=== PATIENT | female | born 1965 | race Caucasian/White ===

== ENCOUNTER 2024-08-18 16:47 | Emergency (ER) | payer MEDICAID, SELFPAY ==
[2024-08-18 17:02] VITALS: BP 119/91; PULSE 99; RESP 20; TEMP 36.8; O2SAT 95; BMI 28.0
--- NOTE | 2024-08-18 17:03 | ED_ITS ---
HPI - General Adult General Date Seen: 08/18/24 Chief complaint: Headache/Migraine Stated complaint: 10-day migraine Time Seen by Provider: 08/18/24 17:03 History of Present Illness HPI narrative: 58-year-old female with history of asthma, migraine headaches, colon polyps, history of COVID, previous hysterectomy. She presents to the ER today, accompanied by her , with concern for headache that is been ongoing for 10 days. She also has cough, nasal congestion, sore throat, and URI symptoms In terms of her headache she endorses that she has a longstanding history of migraines. She has had them off and on for years. She recalls that when she had a bad migraine some years ago she was evaluated in the ER at [facility]. Apparently at 1 point she had a lumbar puncture to look for meningitis (LP was normal). He apparently she had some complications after the lumbar puncture so she says she will never do that again. She has no known history of vascular disease, aneurysm. No history of immuno deficiency. She typically manages her migraine headaches with Imitrex. She has been trying to trach Imitrex for this headache but it is just not very effective. She has also been trying Tylenol, NyQuil, and qkzg-hms-pzjorio medications without much relief. Her current headache started about 10 days ago on August 08. She says typically with migraine headaches she wakes up in the morning with them but this headache started in the evening. She recalls that it was on [facility] Friday. The headache was not specifically abrupt in onset or associated with any head trauma or exertion or other activity. It has been persistent ever since then. It does get better with Imitrex but never completely goes away. The headache is primarily on the right side of her head which is the typical spot for her migraines but is more focused and intense on her right pentecostal which is different than her normal migraine headache. It does not affect her vision. The headache does make her light sensitive. She is also nauseous but not vomiting. No confusion. No facial droop. No slurred speech. No difficulty walking. No focal numbness or weakness. No fever. The headache does radiate down into the right occipital part of her neck at the base of the skull but otherwise no neck stiffness. Incidentally, 2 days ago on Friday she developed URI symptoms. These include nasal congestion, mild sore throat, cough. She is not short of breath. She is not having any chest pain. No production of sputum. She is mildly nauseous but not vomiting. No abdominal pain. No diarrhea. No rash. She works as a high school chemistry teacher so has potential to exposure to all of the common respiratory pathogens, but has no specific known exposure. She has a history of asthma and controls her asthma with prescription inhalers. Related Data Home Medications ?Medication ?Instructions ?Recorded ?Confirmed budesonide-formoterol inhalation PRN 08/18/24 fluticasone propionate 230 2 inh inhalation BID 08/18/24 08/18/24 mcg-salmeterol 21 mcg/actuation HFA inhaler (Advair HFA) loratadine 10 mg tablet 10 mg PO DAILY 08/18/24 08/18/24 (Allerclear) sumatriptan succinate 25 mg tablet 25 mg PO Q2-4H PRN 08/18/24 08/18/24 (Imitrex) Previous Rx's ?Medication ?Instructions ?Recorded prednisone 20 mg tablet 40 mg (2 x 20 mg) PO DAILY #10 tabs 08/18/24 Allergies Allergy/AdvReac Type Severity Reaction Status Date / Time cat dander Allergy Verified 08/18/24 18:22 house dust Allergy Verified 08/18/24 18:22 mold Allergy Verified 08/18/24 18:22 Exam Narrative: Exam Narrative: Primary Survey: A- patent. Speaking clearly. Phonation normal. No stridor. B- breathing easily. Lung sounds clear and equal. Oxygen saturation normal on room air C- no active bleeding. Blood pressure stable. Symmetric pulses and cap refill in 4 extremities. D- alert and oriented x3. GCS 15. No focal deficits. Constitutional: Appears well-developed and well-nourished. Alert. Conversant. Non toxic. HENT: Head: Atraumatic. No depressed skull fracture, Raccoon Eyes, Calderon's sign, or hemotympanum. Face normal. TMs normal Nose: Nose normal. Mouth/Throat: Oral mucosa is clear and moist. no trismus. Pharynx minimally erythematous. Tonsils symmetric. No tonsillar enlargement or exudate. Eyes: Conjunctivae normal. EOM normal. Pupils equal, round, and reactive to light. No scleral icterus. Neck: Normal range of motion. Neck supple. No tracheal deviation present. Cardiovascular: Normal rate, regular rhythm. No gallop. No friction rub. No murmur heard. Symmetric radial artery pulses Pulmonary/Chest: Effort normal. No stridor. No respiratory distress. No wheezes. Questionable right> left basilar rales, but these seem to clear after coughing spell.. No rhonchi . No tenderness. Abdominal: Soft. No distension. No mass. No tenderness. No rebound. No guarding. No HSM. No CVA tenderness Musculoskeletal: RUE: Normal range of motion. No tenderness. No deformity LUE: Normal range of motion. No tenderness. No deformity RLE: Normal range of motion. No edema. No tenderness. No deformity LLE: Normal range of motion. No edema. No tenderness. No deformity Neurological: Mental status normal. Attention normal. Alert and oriented x3. GCS 15. Memory normal. Speech fluent. Cognition normal. Cranial Nerves intact II-XII except I did not formally test gag or visual acuity. EOMI. Palate elevates symmetrically and tongue protrudes in the midline. Strength: 5/5 trapezius on the right and left 5/5 deltoid on the right and left 5/5 biceps on the right and left 5/5 triceps on the right and left 5/5 network manager on the right and left 5/5 thumb opposition on the right and le ft 5/5 finger abduction on the right and le ft 5/5 hip flexors (L3) on the right and le ft 5/5 quadriceps (L4) on the right and lef t 5/5 tibialis anterior on the right and l eft 5/5 EHL (L5) on the right and left 5/5 gastrocnemius (S1) on the right and left 5/5 hamstring on the right and left Sensation intact to light touch in both upper extremities (C4-T1) Sensation intact to light touch in Both lower extremities (L4-S1). Finger to nose and coordination normal. Skin: Skin is warm and dry. No rash noted. No pallor. Normal capillary refill. Psychiatric: Normal mood. Normal affect. Very polite but somewhat tangential with her history. She recalls that with previous bad headaches years ago she apparently had a lumbar puncture done at [facility]. She says she will never do that again because she was complicated by some sort of pain radiating down her legs after the procedure. She says apparently the provider ?a bubble? after the LP. Const: Vital Signs, click to edit/add: Vital Signs - 24 hr 08/18/24 17:02 Temperature 98.3 F Pulse Rate [Pulse Oximeter] 99 Respiratory Rate 20 Blood Pressure [Ri ght Upper Arm] 119/91 H Pulse Oximetry 95 Oxygen Delivery Me thod Room Air Course Course ED Course: Recheck-headache improved from 9 down to a 7/10. She does report that she had a temporary jittery spell with restless legs after receiving Reglan but that is now getting better Recheck-Headache not improving below 7. Additional meds for muscle relaxation with neck spasm (diazepam) and for headache (Zyprexa) ordered Reevaluation(s) Reevaluation #1: Recheck-headache improved down to a 5.5. Still having some neck muscle spasm in the posterior neck. She does have normal range of motion. No stiffness or meningismus Reevaluation #2: Recheck-after droperidol headache improving. Almost gone. Still some soreness in her neck and pentecostal but she says not really ?pain? anymore Vital Signs Vital signs: Initial Vital Signs Temperature 98.3 F 08/18/24 17:02 Temperature Source Temporal Artery Scan 08/18/24 17:02 Pulse Rate 99 08/18/24 17:02 Respiratory Rate 20 08/18/24 17:02 Blood Pressure 119/91 H 08/18/24 17:02 Blood Pressure Mean 100 08/18/24 17:02 Blood Pressure Position Sitting 08/18/24 17:02 Pulse Oximetry 95 08/18/24 17:02 Oxygen Delivery Method Room Air 08/18/24 17:02 Vital Signs Temperature 98.3 F 08/18/24 17:02 Pulse Rate 99 08/18/24 17:02 Respiratory Rate 20 08/18/24 17:02 Blood Pressure 119/91 H 08/18/24 17:02 Pulse Oximetry 95 08/18/24 17:02 Oxygen Delivery Method Room Air 08/18/24 17:02 Temperature 98.3 F 08/18/24 17:02 Pulse Rate 99 08/18/24 17:02 Respiratory Rate 20 08/18/24 17:02 Blood Pressure 119/91 H 08/18/24 17:02 Pulse Oximetry 95 08/18/24 17:02 Oxygen Delivery Method Room Air 08/18/24 17:02 Medications Administered Medications: Generic Name Dose Route Start Last Admin Trade Name Wendi PRN Reason Stop Dose Admin Droperidol 2.5 mg 08/18/24 20:13 08/18/24 20:23 Droperidol 2.5 Mg/Ml Inj IV 08/18/24 20:14 2.5 mg ONCE ONE Administration Discontinued Medications Generic Name Dose Route Start Last Admin Trade Name Wendi PRN Reason Stop Dose Admin Dexamethasone 10 mg 08/18/24 17:41 08/18/24 18:18 Dexamethasone 10 Mg/Ml Inj PO 08/18/24 17:42 10 mg ONCE ONE Administration Diazepam 5 mg 08/18/24 19:12 08/18/24 19:26 Diazepam 5 Mg/Ml Inj IV 08/18/24 19:13 5 mg ONCE ONE Administration Diphenhydramine HCl 12.5 mg 08/18/24 17:41 08/18/24 18:21 Diphenhydramine 50 Mg/Ml Inj IVP 08/18/24 17:42 12.5 mg ONCE ONE Administration Sodium Chloride 1,000 mls @ 1,000 mls/hr 08/18/24 17:45 08/18/24 19:11 0.9 % Sodium Chloride 1000 Ml IV 08/18/24 18:44 Infused .Q1H MAMTA Infusion Ketorolac Tromethamine 15 mg 08/18/24 17:45 08/18/24 18:21 Ketorolac 15 Mg/Ml Inj IVP 08/18/24 17:46 15 mg ONCE ONE Administration Metoclopramide HCl 10 mg 08/18/24 17:41 08/18/24 18:21 Metoclopramide Hcl 5 Mg/Ml Inj IVP 08/18/24 17:42 10 mg ONCE ONE Administration Olanzapine 5 mg 08/18/24 19:12 08/18/24 19:26 Olanzapine 5 Mg/Ml Inj IVP 08/18/24 19:13 5 mg ONCE ONE Administration Medical Decision Making MDM Narrative Medical decision making narrative: 58-year-old female with history of migraine headaches presenting to the ER today with a fairly significant headache ongoing for about 10 days. Along with that it has been associated with upper respiratory his symptoms including stuffy nose, sore throat, cough for the past 3 days. In terms of the headache, she has no recent head trauma. She is not anticoagulated. The headache however is much more persistent than any of her previous migraines, prompting workup for other conditions. Head CT is obtained and is fortunately negative for any sign of intracranial hemorrhage, subarachnoid. With regard to subarachnoid, sensitivity of the noncontrast head CT would be low at this point since for 10 days out from onset of the headache. CT angio of her head neck is obtained is negative for any aneurysmal disease. Also negative for any sign of cervical artery dissection or carotid stenosis. Overall I have low clinical suspicion for subarachnoid since the headache was not abrupt in onset or thunderclap in nature. Discussed potential lumbar puncture with the patient. She adamantly is refusing. At this point I have low suspicion for meningitis and she is not febrile, white count is normal, she has no neck stiffness. There is no positional component to her headache to suggest pseudotumor cerebri so would hold off on LP for opening pressure at this time. Laboratory workup looks reassuring. Carboxyhemoglobin level is low. White count normal. She also has stuffy nose, sore throat, cough consistent with an upper respiratory tract infection. Viral testing positive for RSV. There is no signs at this point of serious bacterial infection such as OM, RPA, epiglottitis, HAND BLOCKER, strep pharyngitis, pneumonia, sinusitis, meningitis, bacteremia, serious bacterial infection. G chest x-ray is normal by my read but there is suggestion of atelectasis versus subtle infiltrate in the right base per Radiology. I suspect this is probably atelectasis, or possibly a viral pneumonia from RSV. Would hold off on antibiotics for now she does have a history of asthma but is not wheezing here in the ER today. With the potential for this RSV triggering an asthma exacerbation, will start the patient on a short course of prednisone. Discussed with the patient and her the prednisone likely will not alter the course of RSV infection but hopefully will help prevent at an asthma exacerbation. There are no significant gastrointestinal symptoms at this point and no signs of dehydration. Close followup with primary care physician is indicated. Return to ED for worsening headache, uncontrolled vomiting, worsening trouble breathing, fever > 103, protracted vomiting, confusion, or other worsening. Lab Data Labs: Lab Results 08/18/24 08/18/24 08/18/24 Range/Units 17:55 17:55 18:20 WBC 5.27 (4.50-11.00) K/uL RBC 4.73 (4.00-5.20) m/uL Hgb 13.9 (12.0-16.0) gm/dL Hct 42.5 (33.0-51.0) % MCV 90 (80-100) fL MCH 29 (26-34) pg MCHC 33 (32-36) gm/dL RDW Coeff of Jaswant 12.7 (11.5-15.5) % Plt Count 299 (140-440) K/uL Neut % (Auto) 60.0 (42.0-72.0) % Lymph % (Auto) 23.5 (20-44) % Isabella % (Auto) 9.9 (0.0-11.0) % Eos % (Auto) 5.7 (0.0-7.0) % Baso % (Auto) 0.9 (0.0-3.0) % Neut # (Auto) 3.16 (1.7-7.0) K/uL Lymph # (Auto) 1.24 (0.90-2.90) K/uL Isabella # (Auto) 0.50 (0.00-0.90) K/UL Eos # (Auto) 0.30 (0.00-0.50) K/uL Baso # (Auto) 0.05 (0.00-0.30) K/uL Abs Immat Gran (auto) 0.00 (0.00-0.30) K/uL Imm/Tot Granulo (auto) 0.0 % Carboxyhemoglobin 1.3 (0.0-5.0) % Sodium 137 (135-149) mmol/L Potassium 4.1 (3.6-5.1) mmol/L Chloride 104 (96-114) mmol/L Carbon Dioxide 24 (20-32) mmol/L Anion Gap 9 (7-15) mEq/L BUN 16 (7-30) mg/dL Creatinine 0.8 (0.5-1.5) mg/dL Estimated Creat Clear 70.66 Estimated GFR 86 ml/min Glucose 108 (60-115) mg/dL Lactate 0.9 (0.5-1.9) mmol/L Calcium 9.2 (8.4-10.6) mg/dL Procalcitonin Cancelled 0.08 SARS-CoV-2 (PCR) Negative SARS-CoV-2 (Negative) Influenza Type A (PCR) Negative PCR FLU A (Negative) Influenza Type B (PCR) Negative PCR FLU B (Negative) RSV (PCR) POSITIVE PCR RSV A (Negative) Imaging Data CT scan - head: Attestation: I have reviewed the pertinent imaging results. My impression: Normal Radiologist's impression: IMPRESSION: No acute intracranial hemorrhage or mass effect. CTA neck: Attestation: I have reviewed the pertinent imaging results. Radiologist's impression: Preliminary Report: No proximal large vessel occlusion, cervical arterial stenosis, or arterial dissection. CTA head: Attestation: I have reviewed the pertinent imaging results. Radiologist's impression: Preliminary Report: No proximal large vessel occlusion, cervical arterial stenosis, or arterial dissection. Chest x-ray: Attestation: I have reviewed the pertinent imaging results. My impression: No acute infiltrate Radiologist's impression: IMPRESSION: 1. Suggestion of a right-sided aortic arch. 2. Streaky right basilar opacities, may reflect atelectasis versus early pneumonia. Discharge Plan Discharge Clinical Impression: Headache, Respiratory syncytial virus (RSV) Patient Disposition: Home, Self-Care Condition: Stable Instructions: Acute Headache (DC), RSV (Respiratory Syncytial Virus) Infection (ED) Additional Instructions: As we discussed, please come back to the ER right away if you have any problems, especially if you have worsening or uncontrolled headache, high fever, confusion, uncontrolled vomiting, or worsening trouble breathing. You can usual regular medications as well as [id number] medications such as Tylenol or ibuprofen if needed to help treat your headache You do have respiratory syncytial virus. This is of viral respiratory infection that has spread in the air when people cough. He should stay home until your symptoms are improving and and until you have been afebrile for 24 hours. Please follow-up with your regular doctor or come back to the ER within 3-5 days if you are not substantially improving Prescriptions: New prednisone 20 mg tablet 40 mg PO DAILY Qty: 10 0RF No Action fluticasone propion-salmeterol [Advair HFA] 230-21 mcg/actuation HFA aerosol inhaler 2 inh inhalation BID budesonide-formoterol [Symbicort] inhalation PRN loratadine [Allerclear] 10 mg tablet 10 mg PO DAILY sumatriptan succinate [Imitrex] 25 mg tablet 25 mg PO Q2-4H PRN Rx Instructions: do not exceed 8 doses per 24 hrs Follow Up/Referrals: Provider,Not a Local [Primary Care Provider] - Stand Alone Forms: [employer] Info Instructions
--- NOTE | 2024-08-18 17:41 | CRLHL7_ITS ---
For Patients: As a result of the Century Cures Act, medical imaging exams and procedure reports are released immediately into your electronic medical record. You may view this report before your referring provider. If you have questions, please contact your health care provider. INDICATION: Right basilar rales. TECHNIQUE: Chest 2 view(s) COMPARISON: None. FINDINGS: No cardiomegaly. Suggestion of a right-sided aortic arch. Pulmonary vasculature is normal. Streaky right basilar opacities. No layering pleural effusion. No pneumothorax. Multilevel degenerative changes of the visualized spine. IMPRESSION: 1. Suggestion of a right-sided aortic arch. 2. Streaky right basilar opacities, may reflect atelectasis versus early pneumonia. Dictated by Rickie Huddleston MD @ 08/18/2024 7:05:31 PM (Electronically Signed)
--- NOTE | 2024-08-18 17:42 | CRLHL7_ITS ---
For Patients: As a result of the Century Cures Act, medical imaging exams and procedure reports are released immediately into your electronic medical record. You may view this report before your referring provider. If you have questions, please contact your health care provider. Indication Headache. TECHNIQUE: Noncontrast CT images of the brain. COMPARISON: None. FINDINGS: The ventricles and sulci are within normal limits for patient age. No mass effect or midline shift. Sim-white differentiation is maintained. No acute intracranial hemorrhage or pathologic extra-axial fluid collection. Globes are symmetric. The calvarium is intact. Mfxc-yj-rbxxgqyu paranasal sinus mucosal thickening. Mastoid air cells are clear. IMPRESSION: No acute intracranial hemorrhage or mass effect. Please note that all CT scans at this facility use dose modulation, iterative reconstruction, and/or weight-based dosing when appropriate to reduce radiation dose to as low as reasonably achievable. Dictated by Lex Boss MD @ 08/18/2024 6:41:25 PM (Electronically Signed)
--- NOTE | 2024-08-18 17:42 | CRLHL7_ITS ---
For Patients: As a result of the Century Cures Act, medical imaging exams and procedure reports are released immediately into your electronic medical record. You may view this report before your referring provider. If you have questions, please contact your health care provider. DATE: 08/18/2024 CLINICAL HISTORY: Patient with headache and neck pain. TECHNIQUE: Standard helical CT image acquisition of the neck up to the skull base after bolus intravenous contrast enhancement. 2D and 3D MIP images for post-processing were performed and interpreted on an independent workstation and 3D images were permanently archived. COMPARISON: CT same day. FINDINGS: There is a right-sided aortic arch. The origins of the great vessels from the aortic arch are patent. The origin of the right vertebral artery is patent. The origin of the left vertebral artery is patent. The common carotid arteries are patent. There is no stenosis at the origin of the right internal carotid artery. There is no stenosis at the origin of the left internal carotid artery. The rest of the cervical segments of the internal carotid arteries are patent up to the skull base. The left vertebral artery is dominant. The cervical segments of the vertebral arteries are patent up to the skull base. The visualized lung apices are unremarkable. The thyroid gland is unremarkable. The soft tissues of the neck are unremarkable. There are degenerative changes in the cervical spine. IMPRESSION: Patent cervical vasculature. Please note that all CT scans at this facility use dose modulation, iterative reconstruction, and/or weight-based dosing when appropriate to reduce radiation dose to as low as reasonably achievable. Dictated by Danna Bustos MD @ 08/19/2024 10:25:09 AM (Electronically Signed)
--- NOTE | 2024-08-18 17:42 | CRLHL7_ITS ---
For Patients: As a result of the Century Cures Act, medical imaging exams and procedure reports are released immediately into your electronic medical record. You may view this report before your referring provider. If you have questions, please contact your health care provider. DATE: 08/18/2024 CLINICAL HISTORY: Patient with headache. TECHNIQUE: Standard helical CT image acquisition through the intracranial circulation following intravenous administration of contrast material with bolus tracking. 2D and 3D MIP images for post-processing were performed and interpreted on an independent workstation and 3D images were permanently archived. COMPARISON: CT same day. FINDINGS: There is no cerebral aneurysm or large vessel occlusion. The right internal carotid artery is normal. The right middle cerebral artery and its branches are normal. The right anterior cerebral artery and its branches are normal. The left internal carotid artery is normal. The left middle cerebral artery and its branches are normal. The left anterior cerebral artery and its branches are normal. The anterior communicating artery is well visualized and appears normal. The right vertebral artery and PICA are normal. The left vertebral artery and PICA are normal. The left vertebral artery is dominant. The basilar artery is patent and appears normal. The right posterior cerebral artery is normal. The left posterior cerebral artery is normal. IMPRESSION: Patent proximal intracranial vasculature without intracranial aneurysms. Please note that all CT scans at this facility use dose modulation, iterative reconstruction, and/or weight-based dosing when appropriate to reduce radiation dose to as low as reasonably achievable. Dictated by Danna Bustos MD @ 08/19/2024 10:26:36 AM (Electronically Signed)
--- OUTSIDE RECORDS SUMMARY | 2024-08-18 18:08 | XMS_ITS | Encounter Summary ---
Author Organization [facility] Address [address] [place] [id number] Care Team Providers Care Certified Fraud Examiner Name Role Phone Dianne Syed MD Unavailable [phone] Angeles Hartley MD Unavailable [phone] Carlotta Miranda NP Unavailable [phone] No Ref-Primary, Physician Primary Care Provider Encounter Details Date Type Department Care Team (Late st Contact Info) Description 05/06/2024 [facility] Medical Advice [facility] [address] [id number] Amina Ziegler RN Social History Tobacco Use Types Packs/Day Years Used Date Smoking Tobacco: Never Smokeless Tobacco: Never Alcohol Use Standard Drinks/Week Comments Yes 0 (1 standard drink = 0.6 oz pure alcohol) Alcoholic Drinks/day: white wine once in a great while PHQ-2 Answer Date Recorded PHQ-2 Score 0 04/25/2020 Adolescent Education Answer Date Record ed Getting School Help Needed Not on file 03/31 Comments No Sex and Gender Information Value Date Recorded Sex Assigned at Female 07/26/2021 8:26 AM LITHOGRAPHIC ETCHER Legal Sex Female 4:53 AM LITHOGRAPHIC ETCHER Gender Identity Female 07/26/2021 8:26 AM LITHOGRAPHIC ETCHER Sexual Orientation Straight 07/26/2021 8: 26 AM LITHOGRAPHIC ETCHER documented as of this encounter Plan of Treatment Not on file documented as of this encounter Visit Diagnoses Not on filedocumented in this encounter Care Teams Certified Fraud Examiner Relationship Specialty Start Date End Date No Ref-Primary, Physician PCP - General 01/05/24 Dianne Syed MD Assigned Allergy Provider 01/12/21 Angeles Hartley MD [address] [place] [id number] Surgery 06/27/22 Carlotta Miranda NP [address] [place] [address] [place] [id number] Assigned PCP 04/26/23 documented as of this encounter
--- OUTSIDE RECORDS SUMMARY | 2024-08-18 18:08 | XMS_ITS | Encounter Summary ---
Author Organization [place] Address [address] [place] [address] Care Team Providers Care Director Of Player Personnel Name Role Phone Carlotta Miranda NP Primary Care Provider [phone] Dianne Syed MD Unavailable [phone] Carlotta Miranda NP Unavailable [phone] Angeles Hartley MD Unavailable [phone] Carlotta Miranda NP Unavailable [phone] Carlotta Miranda NP Unavailable [phone] Eduardo Hong CNP Unavailable Carlotta Miranda NP Unavailable No Ref-Primary, Physician Primary Care Provider Encounter Details Date Type Department Care Team (Late st Contact Info) Description [facility] Fatou[facility]ata Magana [facility] [address] [facility] [place] [id number] Social History Tobacco Use Types Packs/Day Years Used Date Smoking Tobacco: Never Smokeless Tobacco: Never Alcohol Use Standard Drinks/Week Comments Yes 0 (1 standard drink = 0.6 oz pure alcohol) Alcoholic Drinks/day: white wine once in a great while PHQ-2 Answer Date Recorded PHQ-2 Score 0 04/25/2020 Comments No Sex and Gender Information Value Date Recorded Sex Assigned at Female 07/26/2021 8:26 AM VESSEL SCRAPPER Legal Sex Female 4:53 AM VESSEL SCRAPPER Gender Identity Female 07/26/2021 8:26 AM VESSEL SCRAPPER Sexual Orientation Straight 07/26/2021 8: 26 AM VESSEL SCRAPPER documented as of this encounter Plan of Treatment Not on file documented as of this encounter Visit Diagnoses Not on filedocumented in this encounter Additional Health Concerns Infection Onset Date Last Indicated Resolved Time Rule Out COVID-19 07/26/2021 07/26/2021 07/27/2021 11:15 AM VESSEL SCRAPPER documented as of this encounter Care Teams Director Of Player Personnel Relationship Specialty Start Date End Date Carlotta Miranda NP [address] [place] [address] PCP - General 04/09/19 01/04/24 No Ref-Primary, Physician PCP - General 01/05/24 Dianne Syed MD [address] [place] [address] Assigned Allergy Provider 01/12/21 Carlotta Miranda NP [address] [place] [address] Assigned PCP 12/13/20 06/14/22 Angeles Hartley MD [address] [place] [address] Surgery 06/27/22 Carlotta Miranda NP [address] [place] [address] Assigned PCP 08/24/22 01/24/23 Carlotta Miranda NP [address] [place] [address] Assigned Pain Medication Provider 08/31/22 01/03/23 Eduardo Hong CNP [facility], [address] [place] [address] Assigned PCP 01/25/23 04/25/23 Carlotta Miranda NP [address] [place] [address] Assigned PCP 04/26/23 documented as of this encounter
--- OUTSIDE RECORDS SUMMARY | 2024-08-18 18:08 | XMS_ITS | Encounter Summary ---
Author Organization [place] Address [address] [place] [address] Care Team Providers Care Lead Pharmacy Technician Name Role Phone Carlotta Miranda NP Primary Care Provider [phone] Dianne Syed MD Unavailable [phone] Angeles Hartley MD Unavailable [phone] Carlotta Miranda NP Unavailable [phone] Carlotta Miranda NP Unavailable [phone] Eduardo Hong UTILITY MECHANIC Unavailable Carlotta Miranda NP Unavailable [phone] Ref-Primary, Physician Primary Care Provider Encounter Details Date Type Department Care Team (Late st Contact Info) Description 12/17/2022 [facility] [address] [address] Amina Ziegler, RN Social History Tobacco Use Types Packs/Day [...] Sex Assigned at Female 07/26/2021 8:26 AM CHILDBIRTH EDUCATOR Legal Sex Female 4:53 AM CHILDBIRTH EDUCATOR Gender Identity Female 07/26/2021 8:26 AM CHILDBIRTH EDUCATOR Sexual Orientation Straight 07/26/2021 8: 26 AM CHILDBIRTH EDUCATOR documented as of this encounter Plan of Treatment Not on file documented as of this encounter Visit Diagnoses Not on filedocumented in this encounter Care Teams Lead Pharmacy Technician Relationship Specialty Start Date End Date Carlotta Miranda NP [address] [place] [place] [address] PCP - General 04/09/19 01/04/24 No Ref-Primary, Physician PCP - General 01/05/24 Dianne Syed MD [facility] [place] [address] [place] [address] Assigned Allergy Provider 01/12/21 Angeles Hartley MD [address] [address] MD Surgery 06/27/22 Carlotta Miranda NP [address] [place] [address] Assigned PCP 08/24/22 01/24/23 Carlotta Miranda NP [address] [place] [address] Assigned Pain Medication Provider 08/31/22 01/03/23 Eduardo Hong CNP [address] [facility] [address] [place] [address] Assigned PCP 01/25/23 04/25/23 Carlotta Miranda [place] [facility] [place] [address] [place] [address] Assigned PCP 04/26/23 documented as of this encounter
--- OUTSIDE RECORDS SUMMARY | 2024-08-18 18:08 | XMS_ITS | Clinical Summary ---
Author Organization [facility] Address [address] [place] [address] Care Team Providers Care Appeals Assistant Name Role Phone Gertrude Agosto MD Primary Care Provider [phone] Source Comments You are receiving this document as you are listed as the primary care provider,follow-up provider, or the patient has been referred to you for consultation.This is in compliance with the Medicare and[facility] Hospital[facility] EHR Incentive Program,which states Providers who transition their patient to another setting of careor provider of care or refers their patient to another provider of care shouldprovide summary care record for each transition of care or referral. [employer] Allergies Active Allergy Reactions Criticality Noted Date Comments Dust Mite Extract Itching,Other, see comments,Runny Nose 08/20/2007 sneezing sneezing sneezing sneezing sneezing sneezing sneezing Ibuprofen Unknown 02/07/2011 She can tolerate well the 600 mg tablets; but when she takes otc 200 mg/3 tab it causes heartburn, acid reflux. She can tolerate well the 600 mg tablets; but when she takes otc 200 mg/3 tab it causes heartburn, acid reflux. She can tolerate well the 600 mg tablets; but when she takes otc 200 mg/3 tab it causes heartburn, acid reflux. She can tolerate well the 600 mg tablets; but when she takes otc 200 mg/3 tab it causes heartburn, acid reflux. She can tolerate well the 600 mg tablets; but when she takes otc 200 mg/3 tab it causes heartburn, acid reflux. She can tolerate well the 600 mg tablets; but when she takes otc 200 mg/3 tab it causes heartburn, acid reflux. Molds & Smuts Itching,Other, see comments,Runny Nose 08/20/2007 Oxycodone Anaphylaxis,Itching High 01/31/2009 tolerates vicodin tolerates vicodin tolerates vicodin tolerates vicodin tolerates vicodin tolerates vicodin Medications * This document contains information received from the source organization and may not represent a complete record from that organization. fluticasone-corey meterol (ADVAIR) 250-50 MCG/DOSE diskus inhaler Inhale 1 Puff two times a day. Active dilTIAZem (CARDIZEM) 60 MG tabletIndicatio ns:Epigastric abdominal pain Take 1 Tablet (60 mg) by mouth 4 times daily as needed (epigastric abdominal pain). 20 Tablet 2 Active Additional Information Patient not taking.Reported on 06/03/2022 diphenhydrAMINE (BENADRYL) 25 MG capsule Take 2 Capsules (50 mg) by mouth. Active cetirizine (ZYRTEC) 10 MG tablet Take 1 Tablet (10 mg) by mouth. Active omeprazole (PRILOSEC) 20 MG capsule Take 1 Capsule (20 mg) by mouth Every 24 hours. 2 Active progesterone (PROMETRIUM) 200 MG capsule Take 1 Capsule (200 mg) by mouth. 2 Active SUMAtriptan (IMITREX) 100 MG tablet Take 1 Tablet (100 mg) by mouth every 2 hours as needed. 2 Active Active Problems Problem Noted Date Diagnosed Date Lipoma of left upper extremity 03/20/2022 Overview (03/20/2022): Added automatically from request for surgery [id number] Laryngitis 05/01/2009 Other disorder of impulse control 02/13/2006 Attention deficit disorder 02/13/2006 Overview (03/30/2015): Epic Other chronic allergic conjunctivitis 11/06/2004 Allergic rhinitis 10/22/2004 Overview (03/30/2015): Epic Intermittent asthma 10/22/2004 Hypothyroidism Migraine headache Resolved Problems Problem Noted Date Diagnosed Date Resolved Date Allergy to other foods 11/06/200406/14 Overview (02/19/2017): ALLERGY TO OTHER FOODS (fresh fruits and tree nuts) Immunizations Immunization Administration Dates Next Due DT Ped 04/16/1993 Flu Vac (3+ yrs) 04/09/2012, 1,05/01/2010,2007,03/30/2006 Flu Vac Preserv Free (3+yrs) 05/02/2009 Fluzone Qiv Multidose Vial 0 .25 (6-35 Mos) 04/08/2019,03/25/2013 H1n1 Miv Sanofi 3+ Yr (Injected) 07/11/2009 HepA Adult (19+ yrs) 09/18/1995 Influenza IIV4 (Quadrivalent ) 0.5mL (69478) 04/25/2020,03/25/2013 Influenza Vaccine (3+years) ([facility]) 05/02/2009 Influenza, Unspecified Formulation 03/30/2019, PCV13 (Prevnar) 04/25/2020 PPSV23 (Pneumovax) 04/15/2019 Pfizer Monovalent 12+ 12/10/2021 Pfizer Monovalent 12+ Purple Top 11/14/2020,09/29 Td (7+ yrs) 07/12/2005 Tdap 07/29/2012 Typhoid (Typhim Vi, IM) 03/31/2007,05/29/1988 YF (Yellow Fever) 03/31/2007 Family History Medical History Relation Name Comments Coronary Artery Disease Father whil egetting chemotherapy for prostate cancer Hypertension Father Cerebrovascular Disease Paternal Grandmother and radha instead and mons dad Cancer, Breast Negative Family History Diabetes, Type II Negative Family History Relation Name Status Comments Father Paternal Grandmother Social History Tobacco Use Types Packs/Day Years Used Date Smoking Tobacco: Never Smokeless Tobacco: Never Tobacco Cessation:Counseling Given: Not Answered Alcohol Use Standard Drinks/Week Comments Not Currently 0 (1 standard drink = 0.6 oz pur e alcohol) occ PHQ-2 Answer Date Recorded PHQ-2 Score 0 08/29/2022 Comments No Sex and Gender Information Value Date Recorded Sex Assigned at Not on file Legal Sex Female 5:12 AM CDT Gender Identity Not on file Sexual Orientation Not on file Occupation Industry Job Start Date Job End Date work for [employer] Not on file Not on fi le Not on file Last Filed Vital Signs Vital Sign Reading Time Taken Comments Blood Pressure 90/63 08/29/2022 9:51 AM CUSTOMS ENTRY CLERK Pulse 78 08/29/2022 9:51 AM CUSTOMS ENTRY CLERK Temperature 36.9 C (98.4 F) 08/29/2022 9:51 AM CUSTOMS ENTRY CLERK Respiratory Rate 16 04/02/2022 8:03 AM CDT Oxygen Saturation 96% 08/29/2022 9:51 AM CUSTOMS ENTRY CLERK Inhaled Oxygen Concentration - - Weight 71.3 kg (157 lb 3.2 oz) 08/29/2022 9:51 A M CUSTOMS ENTRY CLERK Height 165.1 cm (5' 5) 04/02/2022 6:25 AM CDT Body Mass Index 26.16 04/02/2022 6:25 AM CDT Plan of Treatment Health Maintenance Due Date Last Done Comments Hep C Screening (Preventive Services) 1967 HIV Screening (Preventive Services) 1983 FIT Colon Cancer Screening 2011 Cervical Cancer Screening Due 07/30/2012 07/29/2012 Adult Preventive Visit 07/29/2013 07/29/2012, 2009 Mammogram 03/26/2015 03/26/2013 (Hist orical Completion), 05/10/2009 (Historical Completion) Cholesterol 08/06/2017 08/06/2012 Zoster/Shingles (1 of 2) 10/14/2017 DTaP/Tdap/Td (4 - Tdap) 07/29/2022 07/29/19 13, 07/12/2005, 04/16/1993 COVID-19 Vaccine ( season) 2024 12/10/2021, 11/14/2020, 10/24/2020 Influenza (#1) 2024 04/25/2020, 03/30, 03/30/2019, Additional history exists Pneumococcal 50+ Yrs (3 of 3 - PCV) 04/25/2025 04/25/2020, 04/15/2019 Pneumococcal (3 - PPSV23 or PCV20) 10/14/2032 04/25/2020, 04/15/2019 HepA Aged Out 09/18/1995 No longer eligi ble based on patient's age to complete this topic Hib Aged Out No longer eligi ble based on patient's age to complete this topic IPV (Polio) Aged Out No longer eligi ble based on patient's age to complete this topic MCV4 Aged Out No longer eligi ble based on patient's age to complete this topic Meningococcal B Aged Out No longer el igible based on patient's age to complete this topic Procedures Procedure Name Priority Date/Time Associated Diagnosis Comments LIPID PANEL & DIRECT LDL (IF NEEDED) Routine 08/06/2012 8:03 AM CUSTOMS ENTRY CLERK Screening for lipoid disorders PAP TEST, ROUTINE Routine 07/29/2012 5:1 0 PM CUSTOMS ENTRY CLERK Screening for malignant neoplasm of the cervix from Last 3 Months or Most Recently Relevant to Health Maintenance Results * (ABNORMAL) LIPID PANEL AND DIRECT LDL(IF NEEDED) (08/06/2012 8:03 AM CUSTOMS ENTRY CLERK) Cholesterol 201(H) 0 - 199 mg/dl [facility] Triglyceride 76 0 - 149 mg/dl [facility] HDL 63 >40 mg/dl [facility] LDL, Calc. 123 0 - 129 mg/dl [facility] Non HDL Chol, Calc 138 mg/dl [facility] Hours Fasting 12 hours [facility] 08/06/2012 8:03 AM CUSTOMS ENTRY CLERK 08/06/2012 8:53 AM CUSTOMS ENTRY CLERK us Rojas Carrasco MD LAB_1 Final Res ult Performing Organization Address City/State/[facility] Co de Phone Number [facility] [address] [address] * PAP TEST, ROUTINE (07/29/2012 5:10 PM CUSTOMS ENTRY CLERK) Cytology (NOTE) Steam And Power Superintendent Cytology Report Patient Name: MONO PALMA Taken: 07/29/2012 Received: 07/31/2012 Reported: 08/14/2012 Physician(s): ROJAS CARRASCO ([id number]) Source of Specimen Liquid routine Pap, cervical/endocervi pepito: Specimen Adequacy Satisfactory for evaluation. Endocervical component present. Final Cytologic Interpretation/Res ult NEGATIVE FOR INTRAEPITHELIAL LESION OR MALIGNANCY (NILM) Electronically Signed Out By EMILIA Gallagher (ASCP) Nelda Triana CT (ASCP) EMILIA Gallagher (ASCP) Pap Smear History Date of Last Menstrual Period: No LMP recorded Microscopic Description Microscopic examination is performed. [facility] Department of Pathology [address] [place] [address] [facility] 07/29/2012 5:10 PM CUSTOMS ENTRY CLERK 07/31/2012 6:55 AM CUSTOMS ENTRY CLERK us Rojas Carrasco MD LAB_1 Final Res ult [facility] [address] [phone] from Last 3 Months or Most Recently Relevant to Health Maintenance Insurance CARE MNCARE CARE MNCARE CARE MNCARE Care Teams Appeals Assistant Relationship Specialty Start Date End Date Gertrude Agosto MD [address] [place] [address] PCP - General 12/29/17
--- OUTSIDE RECORDS SUMMARY | 2024-08-18 18:08 | XMS_ITS | Encounter Summary ---
Author Organization [place] Address [address] [place] [address] Care Team Providers Care Digital Music Instructor Name Role Phone Carlotta Miranda NP Primary Care Provider [phone] Dianne Syed MD Unavailable [phone] Carlotta Miranda NP Unavailable [phone] Angeles Hartley MD Unavailable [phone] Carlotta Miranda NP Unavailable [phone] Carlotta Miranda NP Unavailable [phone] Eduardo Hong CNP Unavailable [phone] Carlotta Miranda NP Unavailable [phone] Ref-Primary, Physician Primary Care Provider Encounter Details Date Type Department Care Team (Late st Contact Info) Description 11/09/2021 [facility] Medical Advice [facility] [address] [place] [address] Brian Mayer, RN Social History Tobacco Use Types Packs/Day [...] Sex Assigned at Female 07/26/2021 8:26 AM KITCHEN ASSISTANT Legal Sex Female 4:53 AM KITCHEN ASSISTANT Gender Identity Female 07/26/2021 8:26 AM KITCHEN ASSISTANT Sexual Orientation Straight 07/26/2021 8: 26 AM KITCHEN ASSISTANT documented as of this encounter Plan of Treatment Not on file documented as of this encounter Visit Diagnoses Not on filedocumented in this encounter Care Teams Digital Music Instructor Relationship Specialty Start Date End Date Carlotta Miranda NP [address] [place], [place] [address] [address] [address] PCP - General 04/09/19 01/04/24 No Ref-Primary, Physician PCP - General 01/05/24 Dianne Syed MD [address] [place], [place] [address] [address] Assigned Allergy Provider 01/12/21 Carltota Miranda [place] [address] Assigned PCP 12/13/20 06/14/22 Angeles Hartley MD [facility] [address] [address] MD Surgery 06/27/22 Carlotta Miranda NP [address] [place] [address] Assigned PCP 08/24/22 01/24/23 Carlotta Miranda NP [address] [place] [address] Assigned Pain Medication Provider 08/31/22 01/03/23 Eduardo Hong, NALDO [address] [place] [address] [address] [place] [address] Assigned PCP 01/25/23 04/25/23 Carlotta Miranda NP [address] [facility] [place] [address] Assigned PCP 04/26/23 documented as of this encounter
--- OUTSIDE RECORDS SUMMARY | 2024-08-18 18:08 | XMS_ITS | Encounter Summary ---
Author Organization [place] Address [address] [place] [address] Care Team Providers Care Combat Systems Officer Name Role Phone Carlotta Miranda NP Primary Care Provider [phone] Dianne Syed MD Unavailable [phone] Carlotta Miranda NP Unavailable [phone] Angeles Hartley MD Unavailable [phone] Carlotta Miranda NP Unavailable [phone] Carlotta Miranda NP Unavailable Eduardo Hong WORSTED WINDER Unavailable Carlotta Miranda NP Unavailable [phone] Ref-Primary, Physician Primary Care Provider Encounter Details Date Type Department Care Team (Late st Contact Info) Description 04/11/2015 Records - [facility] CONVERSION Scan, Non-Provider Social History Tobacco Use Types Packs/Day Years Used Date Smoking Tobacco: Never Alcohol Use Standard Drinks/Week Comments No 0 (1 standard drink = 0.6 oz pur e alcohol) Comments No Sex and Gender Information Value Date Recorded Sex Assigned at Female 07/26/2021 8:26 AM LOGISTICS TEAM LEAD Legal Sex Female 4:53 AM LOGISTICS TEAM LEAD Gender Identity Female 07/26/2021 8:26 AM LOGISTICS TEAM LEAD Sexual Orientation Straight 07/26/2021 8: 26 AM LOGISTICS TEAM LEAD documented as of this encounter Plan of Treatment Not on file documented as of this encounter Procedures Procedure Name Priority Date/Time Associated Diagnosis Comments SPIROMETRY - HIM SCAN 04/14/2015 documented in this encounter Results * SPIROMETRY - HIM SCAN (04/14/2015) us Historical Provider PFT ORDERABLES Final Result documented in this encounter Visit Diagnoses Not on filedocumented in this encounter Additional Health Concerns Infection Onset Date Last Indicated Resolved Time Rule Out COVID-19 07/26/2021 07/26/2021 07/27/2021 11:15 AM LOGISTICS TEAM LEAD documented as of this encounter Care Teams Combat Systems Officer Relationship Specialty Start Date End Date Carlotta Miranda NP [address] [place] [address] PCP - General 04/09/19 01/04/24 No Ref-Primary, Physician PCP - General 01/05/24 Dianne Syed MD [address] [place] [address] Assigned Allergy Provider 01/12/21 Carlotta Miranda NP [address] [place] [address] [address] Assigned PCP 12/13/20 06/14/22 Angeles Hartley MD [address] [place] [address] MD Surgery 06/27/22 Carlotta Miranda NP [address] [place] [address] Assigned PCP 08/24/22 01/24/23 Carlotta Miranda NP [address] [place] [address] Assigned Pain Medication Provider 08/31/22 01/03/23 Eduardo Hong CNP [address] [facility], [address] [place] [address] Assigned PCP 01/25/23 04/25/23 Carlotta Miranda NP [address] [place] [address] [place] [address] Assigned PCP 04/26/23 documented as of this encounter
--- OUTSIDE RECORDS SUMMARY | 2024-08-18 18:08 | XMS_ITS | Encounter Summary ---
Author Organization [facility] Address [address] [place] [address] Care Team Providers Care On Site Nurse Name Role Phone Gertrude Agosto MD Primary Care Provider [phone] Encounter Details Date Type Department Care Team (Late st Contact Info) Description 06/03/2012 Correspondence None No Primary/Referring, Phy MEDICAL EQUIPMENT PROOF OF DELIVERY Social History Tobacco Use Types Packs/Day Years Used Date Smoking Tobacco: Never Alcohol Use Standard Drinks/Week Comments Yes 0 (1 standard drink = 0.6 oz pur e alcohol) occ Comments No Sex and Gender Information Value Date Recorded Sex Assigned at Not on file Legal Sex Female 5:12 AM CDT Gender Identity Not on file Sexual Orientation Not on file documented as of this encounter Progress Notes * No Primary/Referring, Phy - 06/03/2012 12:00 AM CST NING PROGRAM MANAGER documented in this encounter Plan of Treatment Not on file documented as of this encounter Visit Diagnoses Not on filedocumented in this encounter Care Teams On Site Nurse Relationship Specialty Start Date End Date Gertrude Agosto MD [address] [facility] [place] [address] PCP - General 12/29/17 documented as of this encounter
--- OUTSIDE RECORDS SUMMARY | 2024-08-18 18:08 | XMS_ITS | Encounter Summary ---
Author Organization [place] Address [address] [place] [address]. [place] [address] Care Team Providers Care Boom Man Name Role Phone Dianne Syed MD Unavailable [phone] Angeles Hartley MD Unavailable [phone] Carlotta Miranda NP Unavailable [phone] Ref-Primary, Physician Primary Care Provider Reason for Visit * Reason Comments Medication Refill Encounter Details Date Type Department Care Team (Late st Contact Info) Description 04/05/[address] [address] Dianne Syed MD [address] [facility], [address] [address] Medication Refill Social History Tobacco Use Types Packs/Day Years [...] Sex Assigned at Female 07/26/2021 8:26 AM CURING SUPERVISOR Legal Sex Female 4:53 AM CURING SUPERVISOR Gender Identity Female 07/26/2021 8:26 AM CURING SUPERVISOR Sexual Orientation Straight 07/26/2021 8: 26 AM CURING SUPERVISOR documented as of this encounter Miscellaneous Notes * Telephone Encounter - Amina Ziegler, RN - 04/05/2024 12:49 PM CDT Already responded documented in this encounter Plan of Treatment Not on file documented as of this encounter Visit Diagnoses Diagnosis Moderate persistent asthma without complication Unspecified asthma documented in this encounter Care Teams Boom Man Relationship Specialty Start Date End Date No Ref-Primary, Physician PCP - General 01/05/24 Dianne Syed MD Assigned Allergy Provider 01/12/21 Angeles Hartley MD [address] [place] [address] Surgery 06/27/22 Carlotta Miranda NP [address] [place] [address] [place] [address] Assigned PCP 04/26/23 documented as of this encounter
--- OUTSIDE RECORDS SUMMARY | 2024-08-18 18:08 | XMS_ITS | Encounter Summary ---
Author Organization [facility] Address [address] [place] [address] Care Team Providers Care Dye House Supervisor Name Role Phone Carlotta Miranda NP Primary Care Provider [phone] Dianne Syed MD Unavailable [phone] Carlotta Miranda NP Unavailable [phone] Angeles Hartley MD Unavailable [phone] Carlotta Miranda NP Unavailable [phone] Carlotta Miranda NP Unavailable [phone] Eduardo Hong ANIMAL HUSBANDRY TEACHER Unavailable Carlotta Miranda NP Unavailable [phone] Ref-Primary, Physician Primary Care Provider Encounter Details Date Type Department Care Team (Late st Contact Info) Description 10/17/2017 Records - [facility] CONVERSION Scan, Non-Provider Social History Tobacco Use Types Packs/Day Years Used Date Smoking Tobacco: Never Alcohol Use Standard Drinks/Week Comments No 0 (1 standard drink = 0.6 oz pur e alcohol) Comments No Sex and Gender Information Value Date Recorded Sex Assigned at Female 07/26/2021 8:26 AM MATHEMATICS PROFESSOR Legal Sex Female 4:53 AM MATHEMATICS PROFESSOR Gender Identity Female 07/26/2021 8:26 AM MATHEMATICS PROFESSOR Sexual Orientation Straight 07/26/2021 8: 26 AM MATHEMATICS PROFESSOR documented as of this encounter Plan of Treatment Not on file documented as of this encounter Visit Diagnoses Not on filedocumented in this encounter Additional Health Concerns Infection Onset Date Last Indicated Resolved Time Rule Out COVID-19 07/26/2021 07/26/2021 07/27/2021 11:15 AM MATHEMATICS PROFESSOR documented as of this encounter Care Teams Dye House Supervisor Relationship Specialty Start Date End Date Carlotta Miranda NP [address] [place] [address] PCP - General 04/09/19 01/04/24 No Ref-Primary, Physician PCP - General 01/05/24 Dianne Syed MD [address] [place], [place] [address] [id number] Assigned Allergy Provider 01/12/21 Carlotta Miranda NP [facility] [place] [address] Assigned PCP 12/13/20 06/14/22 Angeles Hartley MD [address] [place] [address] [address] Surgery 06/27/22 Carlotta Miranda NP [address] [place] [address] Assigned PCP 08/24/22 01/24/23 Carlotta Miranda NP [address] [place] [address] Assigned Pain Medication Provider 08/31/22 01/03/23 Eduardo Hong, NALDO [address] [place] [address] Assigned PCP 01/25/23 04/25/23 Carlotta Miranda NP [address] [place] [address] Assigned PCP 04/26/23 documented as of this encounter
--- OUTSIDE RECORDS SUMMARY | 2024-08-18 18:08 | XMS_ITS | Encounter Summary ---
Author Organization [facility] Address [address] [place] [address] Care Team Providers Care Firestopper Installer Name Role Phone Dianne Syed MD Unavailable [phone] Angeles Hartley MD Unavailable [phone] Carlotta Miranda NP Unavailable [phone] Ref-Primary, Physician Primary Care Provider Encounter Details Date Type Department Care Team (Late st Contact Info) Description 03/08/2024 [facility] Medical Advice [address] [place] [address] Amina Ziegler RN Social History Tobacco Use [...] Sex Assigned at Female 07/26/2021 8:26 AM ELECTRIC VEHICLE ELECTRICIAN Legal Sex Female 4:53 AM ELECTRIC VEHICLE ELECTRICIAN Gender Identity Female 07/26/2021 8:26 AM ELECTRIC VEHICLE ELECTRICIAN Sexual Orientation Straight 07/26/2021 8: 26 AM ELECTRIC VEHICLE ELECTRICIAN documented as of this encounter Plan of Treatment Not on file documented as of this encounter Visit Diagnoses Not on filedocumented in this encounter Care Teams Firestopper Installer Relationship Specialty Start Date End Date No Ref-Primary, Physician PCP - General 01/05/24 Dianne Syed MD Assigned Allergy Provider 01/12/21 Angeles Hartley MD [address] [place] [id number] Surgery 06/27/22 Carlotta Miranda NP [address] [place] [address] [place] [address] Assigned PCP 04/26/23 documented as of this encounter
--- OUTSIDE RECORDS SUMMARY | 2024-08-18 18:08 | XMS_ITS | Encounter Summary ---
Author Organization [facility] Address [address] [place] [address] Care Team Providers Care Broom Handle Dipper Name Role Phone Carlotta Miranda NP Primary Care Provider [phone] Dianne Syed MD Unavailable [phone] Carlotta Miranda NP Unavailable [phone] Angeles Hartley MD Unavailable [phone] Carlotta Miranda NP Unavailable [phone] Carlotta Miranda NP Unavailable [phone] Eduardo Hong BARK TANNER Unavailable [phone] Carlotta Miranda NP Unavailable [phone] Ref-Primary, Physician Primary Care Provider Encounter Details Date Type Department Care Team (Late st Contact Info) Description 07/26/2021 Documentation Only INTERFACED REPORT Unknown, Provider Social History Tobacco Use Types Packs/Day Years Used Date Smoking Tobacco: Never Smokeless Tobacco: Never Alcohol Use Standard Drinks/Week Comments Yes 0 (1 standard drink = 0.6 oz pure alcohol) Alcoholic Drinks/day: white wine once in a great while PHQ-2 Answer Date Recorded PHQ-2 Score 0 04/25/2020 Comments No Sex and Gender Information Value Date Recorded Sex Assigned at Female 07/26/2021 8:26 AM STEEL ENGRAVER Legal Sex Female 4:53 AM STEEL ENGRAVER Gender Identity Female 07/26/2021 8:26 AM STEEL ENGRAVER Sexual Orientation Straight 07/26/2021 8: 26 AM STEEL ENGRAVER COVID-19 Exposure Response Date Recorded In the last month, have you been in contact with someone who was confirmed or suspected to have Coronavirus / COVID-19? Unable to assess 07/26/2021 3:26 PM STEEL ENGRAVER documented as of this encounter Plan of Treatment Not on file documented as of this encounter Visit Diagnoses Not on filedocumented in this encounter Additional Health Concerns Infection Onset Date Last Indicated Resolved Time Rule Out COVID-19 07/26/2021 07/26/2021 07/27/2021 11:15 AM STEEL ENGRAVER documented as of this encounter Care Teams Broom Handle Dipper Relationship Specialty Start Date End Date Carlotta Miranda NP [address] [place] [address] PCP - General 04/09/19 01/04/24 No Ref-Primary, Physician PCP - General 01/05/24 Dianne Syed MD [address] [place] [address] Assigned Allergy Provider 01/12/21 Carlotta Miranda NP [address] [place] [address] Assigned PCP 12/13/20 06/14/22 Angeles Hartley MD [address] [place] [address] Surgery 06/27/22 Carlotta Miranda NP [address] [place] [address] Assigned PCP 08/24/22 01/24/23 Carlotta Miranda NP [address] [place] [address] Assigned Pain Medication Provider 08/31/22 01/03/23 Eduardo Hong CNP [address] [place] [address], [address] [place] [address] Assigned PCP 01/25/23 04/25/23 Carlotta Miranda NP [address] [place] [address] [place] [address] Assigned PCP 04/26/23 documented as of this encounter
--- OUTSIDE RECORDS SUMMARY | 2024-08-18 18:08 | XMS_ITS | Clinical Summary ---
Author Organization [facility] Address [address] [place] [address] Care Team Providers Care Expeller Worker Name Role Phone [facility], [facility] Primary Care Provide r Allergies Active Allergy Reactions Criticality Noted Date Comments Allergenic Extracts 05/17/2008 Cats and when all the allergens are combined cause her to have mild difficult breathing. House Dust Runny Nose,Itching,Other - Describe In Comment Field 08/20/2007 sneezing Ibuprofen *Unknown - Follow up needed 02/07/2011 She can tolerate well the 600 mg tablets; but when she takes otc 200 mg/3 tab it causes heartburn, acid reflux. Mold Itching,Other - Describe In Comment Field,Runny Nose 08/20/2007 Mold Extracts Runny Nose,Itching,Other - Describe In Comment Field 08/20/2007 Unlisted Allergen (Include Detail In Comments) *Unknown - Follow up needed 05/17/2008 ALLERGENIC EXTRACTS, Cats and when all the allergens are combined cause her to have mild difficult breathing. Oxycodone Anaphylaxis High 01/31/2009 tolerates vicodin Medications diphenhydrAMINE (BENADRYL) 25 mg capsule Take 25 mg by mouth every 4 hours if needed. Active cetirizine (ZyrTEC) 10 mg tablet Take 1 Tablet (10 mg) by mouth once daily. 0 01/23/2021 Active albuterol HFA (PRO-AIR; VENTOLIN; PROVENTIL) 90 mcg/actuation inhaler take as needed 05/01/2022 Active Advair Diskus 250-50 mcg/dose diskus inhaler INHALE 1 PUFF INTO THE LUNGS EVERY 12 HOURS Active MAGNESIUM ORAL Take by mouth at bedtime. Active SUMAtriptan (IMITREX) 100 mg tabletIndication s:Migraine without aura and without status migrainosus, not intractable Take 1 Tablet (100 mg) by mouth every 2 hours if needed for Migraine. Give at minimum 2hrs apart. Max Dose: 200mg per 24hrs. 11 Tablet 11 01/15/2024 Active Active Problems Problem Noted Date Diagnosed Date Migraine without aura and wi thout status migrainosus, not intractable 03/29/2022 Overview (03/29/2022): She recounts history of undiagnosed migraines without aura since the age of 37, never has talked with MD about them and thus has not tried any abortive medications. Initially, infrequent but frequency increased after first . She reports the pain starts in the right side of her neck and radiates upward to the right side of her head. Emesis not common with her migraines.Photophobia and phonophobia usually present with migraine. Supportive measures tried at home include left over prednisone, Excedrin, benadryl, and cola. States all of her migraines last 3 days. Will need long acting anti migraine medications =- Frova is the first choice but not covered so will try imitrex as a trial COVID-19 11/19/2021 Polyp of colon 04/19/2019 10/04/2022 Diverticular disease of large intestine 04/19/20 19 10/04/2022 S/P hysterectomy 11/05/2016 10/04/2022 Allergic rhinitis 10/22/2004 10/04/2022 Overview (10/04/2022): Epic SKIN LESION 10/11/2002 ASTHMA WITHOUT STATUS ASTHMATICUS 10/11/2002 ALLERGY UNSPECIFIED, SEASONAL 10/11/2002 Immunizations Name Administration Dates Next Due COVID-19 vaccine (Financuba 30mcg/0.3mL) 12YO+ HERBER-SUCROSE PF, MDV 12/10/2021 DT (Age < 7 years) 04/16/1993 Hepatitis A (Adult) 09/18/1995 Influenza A (H1N1), Inactivated 07/11/2009 Influenza Virus, Unspecified 03/30/2019,03/25/20 13 Influenza, IIV3 (Age 6-35 mos) 05/02/2009 Influenza, IIV3 (Age >=3 years) 04/09/20 12,04/12/2011,05/01/2010,2008,05/20/2008,03/30/2006 Influenza, IIV4 04/25/2020,03/25/2013 Influenza, IIV4 (=>6mos) MDV 04/08/2019,03/25/20 13 Pneumococcal Poly,23-Valent (Pneumovax) 04/15/2019 Pneumococcal conj 13-Valent (Prevnar 13) 04/25/2020 TD, UNSPECIFIED 07/12/2005 Td (Age >=7 Years) 07/12/2005 Td, Preservative Free (age > = 7 Years) 01/15/2024 Tdap 07/29/2012 Typhoid (injectable) 03/31/2007,05/29/1988 Yellow Fever 03/31/2007 Zoster (Shingrix-RZV, recombinant) 01/27/2024 Family History Medical History Relation Name Comments Genetic Other negative Relation Name Status Comments Other Social History Tobacco Use Types Packs/Day Years Used Date Smoking Tobacco: Never Smokeless Tobacco: Never Alcohol Use Standard Drinks/Week Comments Yes 0 (1 standard drink = 0.6 oz pur e alcohol) social PHQ-2 Answer Date Recorded PHQ-2 TOTAL SCORE 0 01/15/2024 Social Connections Answer Date Recorded Do you often feel lonely or isolated from those around you? 0 01/15/2024 Financial Resource Strain Answer Date R ecorded Difficulty of Paying Living Expenses 3 01/15/2024 Difficulty of Paying Living Expenses Not on file 01/15/2024 Food Insecurity Answer Date Recorded Do you worry your food will run out before you are able to buy more? 1 01/15/2024 Transportation Needs Answer Date Record ed Does lack of transportation keep you from medica l appointments? 1 01/15/2024 Does lack of transportation keep you from work, meetings or getting things that you need? 1 01/15/2024 Housing Stability Answer Date Recorded What is your housing situation today? 1 01/15/2024 Utilities Answer Date Recorded Do you have trouble paying f or utilities (for example, heat, electricity, water, phone)? 1 01/15/2024 Comments No Sex and Gender Information Value Date Recorded Sex Assigned at Not on file Legal Sex Female 6:28 AM PAINTER ORDNANCE Gender Identity Not on file Sexual Orientation Not on file Obstetrics History Para Term AB IAB SAB Ectopic Multiple Livin g Live Births 1 Date Outcome GA Total Labor Labor/2nd/3rd Weight Sex Type Anes PTL Tenisha A1 A5 Name Clin Comments:System Genera eren. Please review and update details. Last Filed Vital Signs Vital Sign Reading Time Taken Comments Blood Pressure 92/70 01/15/2024 8:11 AM CDT Pulse 72 01/15/2024 8:11 AM CDT Temperature 36.6 C (97.9 F) 09/13/2022 6:45 PM CDT Respiratory Rate 16 09/13/2022 6:45 PM CDT Oxygen Saturation 97% 09/13/2022 6:45 PM CDT Inhaled Oxygen Concentration - - Weight 74 kg (163 lb 3.2 oz) 01/15/2024 8:11 AM CDT Height 164.5 cm (5' 4.75) 01/15/2024 8:11 AM CD T Body Mass Index 27.37 01/15/2024 8:11 AM CDT Plan of Treatment Health Maintenance Due Date Last Done Comments Mammogram for age 45-75 10/14/2012 COVID-19 vaccine series ( season) 2024 12/10/2021, 11/14/2020, 10/24/2020 Influenza for age 50-64 02/29/2024 04/25/20 20, 04/08/2019, 03/30/2019, Additional history exists Zoster (shingles) series for age 50+ (2 of 2) 03/23/2024 01/27/2024 BMI (ht and wt on same day) for age 18+ 01/14/2025 01/15/2024, 03/29/2022 Depression screening for age 12+ 01/14/2025 01/15/2024, 01/15/2024 Pneumococcal series for age 50+ (3 of 3 - PCV20 or PCV21) 04/25/2025 04/25/2020, 04/15/2019 Lipids for age 45-75 01/14/2029 01/15/2024, 10/02/2022, 06/07/2022, Additional history exists Colonoscopy through age 75 12/17/2033 12/18/2023, Tetanus booster 01/14/2034 01/15/2024, 07/02, 07/12/2005, Additional history exists Tdap Completed 07/29/2012 HIV for age 15-65 Addressed 04/15/2019 (Ve rified in Care Everywhere or Patient Record) Overridden with the intention of not completing the topic Hepatitis C screening for age 18-79 Completed 01/15/2024 Pap test for age 21-65 Discontinued Procedures Procedure Name Priority Date/Time Associated Diagnosis Comments ANTI HCV Routine 01/15/2024 9:24 AM CDT Need for hepatitis C screening test LIPID PANEL W REFLEX MEASURED LDL Routine 01/15/2024 9:24 AM CDT Routine general medical examination at health care facility SCAN-COLONOSCOPY 12/18/2023 4:00 PM CDT from Last 3 Months or Most Recently Relevant to Health Maintenance Results * (ABNORMAL) LIPID PANEL W REFLEX MEASURED LDL (01/15/2024 9:24 AM CDT) CHOLESTEROL,TOTAL 254(H) 100 - 199 mg/dL 01/15/2024 7:22 PM CDT [facility] Comment: Cholesterol, Total Reference Ranges Desirable <200 mg/dL Borderline 200-239 mg/dL High >=240 mg/dL TRIGLYCERIDES 102 <150 mg/dL 01/15/2024 7:22 PM CDT [facility] HDL CHOLESTEROL 72 >40 mg/dL 7:22 PM CDT [facility] [employer]-[facility] NON-HDL CHOLESTEROL 182(H) <145 mg/dl 01/15/2024 7:22 PM CDT [facility] CHOL/HDL RATIO 3.53 <4.50 01/15/2024 7:22 PM CDT [facility] LDL CHOLESTEROL 162(H) <=130 mg/dL 01/15/2024 7:22 PM CDT [facility] VLDL CHOLESTEROL 20 <=30 mg/dL 01/15/2024 7:22 PM CDT [facility] PROVIDER ORDERED STATUS RANDOM 01/15/2024 7:22 PM CDT [facility] Blood BLOOD SPECIMEN / Unknown Venipuncture / Unknown 01/15/2024 9:24 AM CDT 01/15/2024 9:30 AM CDT us Akilah Montoya MD CHEMISTRY Final Re sult Performing Organization Address [facility] Co de Phone Number [facility] [address] [place] [address], [place] * ANTI HCV (01/15/2024 9:24 AM CDT) HEPATITIS C ANTIBODY Non-Reacti ve Non-React brianda 01/15/2024 7:22 PM CDT [facility] Comment:Please note, per www .CDC.gov: If a patient is known to be at high risk of HCV infection, or is symptomatic, and the physician's suspicion of HCV infection is high, HCV RNA testing is often employed and is of diagnostic value, even after an initial negative anti-HCV test result. Blood BLOOD SPECIMEN / Unknown Venipuncture / Unknown 01/15/2024 9:24 AM CDT 01/15/2024 9:30 AM CDT us Akilah Montoya MD SEND OUTS Final Re sult Performing Organization Address [facility]/ZIP Co de Phone Number [facility] [address] [place] [address], [place] * SCAN-COLONOSCOPY (12/18/2023 4:00 PM CDT) Narrative Procedure Note Salima Montgomery MD - 12/18/2023 3:17 PM CDT [facility] [place] [address], [address], [place] [address] Patient Name: Nazia Soliman Gender: Female Exam Date: 12/18/2023 Visit Number: [id number] Age: 58 Years Date of : 1965 Attending MD: Salima Montgomery MD Medical Record#: [id number] Procedure: Colonoscopy Indications: History of serrated polyposis syndrome Referring MD: Referral Self Primary MD: Sara Yarbrough CNP Medications: Intra Procedure Medications: Patient received monitored anesthesia care. Complications: No immediate complications Procedure: An examination of the heart and lungs was performed and found to be withinacceptable limits. . The patient was therefore deemed a reasonablecandidate for endoscopy and sedation. The risks and benefits of the procedure were explained to the patient.After obtaining informed consent, the patient received monitoredanesthesia care and I passed the scope without difficulty via the rectum to the cecum. The appendiceal orificeand ic valve were identified. The scope was retroflexed during theexamination The quality of the prep was excellent (Miralax/GatoradeDouble Prep - double). This was a complete examination throughout the entire colon. Findings: Polyp location: sigmoid. Quantity: 3. Size: 2 mm. Polyp shape:sessile. Maneuver: polypectomy was performed with a cold biopsy forceps. Removal: complete. Retrieval: complete. Bleeding: none. Diverticulosis. Location: - descending colon - sigmoid. Anal canal: hypertrophied papilla Impression: Serrated polyposis syndrome Colorectal polyps Diverticulosis of colon without diverticulitis impression comments: 3 small polyps removed Preliminary Plan: Repeat colonoscopy in 2 years Pathology Results: A: COLON, SIGMOID, POLYPS: 1. Hyperplastic polyp (1), and normal colonic mucosa (clinically,3 polyps) MICROSCOPIC A: Performed SPECIAL STAINING/DEEPER A: Deeper Electronically signed by: Renee Bellamy MD Interpreted at [facility], [address] [place] [address] Orders Instruction(s)/Education: Instruction/Education Timeframe Assessment Colon Polyps K63.5 Diverticulosis/Diverticulitis K63.5 High Fiber Diet K63.5 Final Plan: Repeat colonoscopy in 2 years. We will attempt to contact you at appropriate intervals via U.S. mail. Wemay not be able to find you or contact you at that time, therefore youshould know that the responsibility for following our recommendation restswith you. If you don't hear from us at the time your procedure is due,please contact our office to schedule an appointment. If your contactinformation should change, please contact our office so that we can updateyour record. _Electronically signed by: Salima Montgomery MD 12/18/2023 cc: Sara Yarbrough CNP Salima Montgomery MD OTHER Final Resu lt from Last 3 Months or Most Recently Relevant to Health Maintenance Insurance [facility] Advance Directives * Full Code (Latest Code Status on File) Date Activated Date Inactivated Comments 04/15/2013 6:53 AM 04/15/2013 8:28 AM * Full Code Date Activated Date Inactivated Comments 08/10/2011 6:53 AM 08/10/2011 2:31 PM * Full Code Date Activated Date Inactivated Comments 02/07/2011 6:49 AM 02/07/2011 2:19 PM * Full Code Date Activated Date Inactivated Comments 01/31/2009 11:39 AM 02/03/2009 5:40 PM * Full Code Date Activated Date Inactivated Comments 01/31/2009 6:09 AM 01/31/2009 11:39 AM Care Teams Expeller Worker Relationship Specialty Start Date End Date Clinic, [facility] [address] [place] [address] PCP - General 01/23/21
--- OUTSIDE RECORDS SUMMARY | 2024-08-18 18:08 | XMS_ITS | Encounter Summary ---
Author Organization [facility] Address [address] [place] [address] Care Team Providers Care Crt Name Role Phone Gertrude Agosto MD Primary Care Provider [phone] Encounter Details Date Type Department Care Team (Late st Contact Info) Description 11/28/2013 Emergency Room External to [facility], Provider HOARSEN[place] Social History Tobacco Use Types Packs/Day Years [...] Start Date Job End Date work for [employer] Not on file Not on fi le Not on file documented as of this encounter Plan of Treatment Not on file documented as of this encounter Visit Diagnoses Not on filedocumented in this encounter Care Teams Crt Relationship Specialty Start Date End Date Gertrude Agosto MD [address] [facility] [place] [address] PCP - General 12/29/17 documented as of this encounter
--- OUTSIDE RECORDS SUMMARY | 2024-08-18 18:08 | XMS_ITS | Encounter Summary ---
Author Organization [facility] Address [address] [place] [address]. [place] [address] Care Team Providers Care Lease Attendant Name Role Phone Carlotta Miranda NP Primary Care Provider Dianne Syed MD Unavailable [phone] Angeles Hartley MD Unavailable [phone] Carlotta Miranda NP Unavailable [phone] Eduardo Hong CNP Unavailable Carlotta Miranda NP Unavailable [phone] Ref-Primary, Physician Primary Care Provider Reason for Visit * Reason Comments Medication Refill Encounter Details Date Type Department Care Team (Late st Contact Info) Description 01/19/[address] [address] Dianne Syed MD [address] [facility], [facility] [address] [place] [address] Medication Refill Social History Tobacco Use [...] Sex Assigned at Female 07/26/2021 8:26 AM CONTACT WORKER LITHOGRAPHY Legal Sex Female 4:53 AM CONTACT WORKER LITHOGRAPHY Gender Identity Female 07/26/2021 8:26 AM CONTACT WORKER LITHOGRAPHY Sexual Orientation Straight 07/26/2021 8: 26 AM CONTACT WORKER LITHOGRAPHY documented as of this encounter Plan of Treatment Not on file documented as of this encounter Visit Diagnoses Diagnosis Moderate persistent asthma without complication Unspecified asthma documented in this encounter Care Teams Lease Attendant Relationship Specialty Start Date End Date Carlotta Miranda NP [address] [place] [address] [place] [address] PCP - General 04/09/19 01/04/24 No Ref-Primary, Physician PCP - General 01/05/24 Dianne Syed MD [address] [place] [address] [place] [address] Assigned Allergy Provider 01/12/21 Angeles Hartley MD [facility] [address] [address] Surgery 06/27/22 Carlotta Miranda NP [address] [place] [address] Assigned PCP 08/24/22 01/24/23 Eduardo Hong CNP [address] [place] [address] [address] [place] [address] Assigned PCP 01/25/23 04/25/23 Carlotta Miranda NP [address] [place], [place] [address] [address] Assigned PCP 04/26/23 documented as of this encounter
--- OUTSIDE RECORDS SUMMARY | 2024-08-18 18:08 | XMS_ITS | Encounter Summary ---
Author Organization [facility] Address [address] [place] [address]. [place] [address] Care Team Providers Care Railway Traction Line Worker Name Role Phone Dianne Syed MD Unavailable [phone] Angeles Hartley MD Unavailable [phone] Carlotta Miranda NP Unavailable [phone] Ref-Primary, Physician Primary Care Provider Reason for Visit * Reason Onset Date Comments Call Back 04/05/2024 Pt is calling to get fluticasone-salmeterol (ADVAIR) 250-50 MCG/ACT inhaler ref[id number] [place], [place] - [address] AT [address], please call back for any questions thanks! Encounter Details Date Type Department Care Team (Late st Contact Info) Description 04/05/[address] [place] [address] Dianne Syed MD [address], [facility] [address] [place] [address] Call Back (Pt is calling to get fluticasone-salmeterol (ADVAIR) 250-50 MCG/ACT inhaler refilled and sent to [facility] #[id number] [place], [place] - [address] AT [facility] & [address], please call back for any questions thanks!/) Social History Tobacco Use Types Packs/Day Years [...] Sex Assigned at Female 07/26/2021 8:26 AM MODEL MAKER FIREARMS Legal Sex Female 4:53 AM MODEL MAKER FIREARMS Gender Identity Female 07/26/2021 8:26 AM MODEL MAKER FIREARMS Sexual Orientation Straight 07/26/2021 8: 26 AM MODEL MAKER FIREARMS documented as of this encounter Miscellaneous Notes * Telephone Encounter - Galina Mckeon - 04/05/2024 12:31 PM CDT [facility] Phone Message May a detailed message be left on voicemail: yes Reason for Call: Other: Pt is calling to get fluticasone-salmeterol (ADVAIR) 250-50 MCG/ACT inhalerrefilled and sent to [facility] #[id number] AT [facility], please call back for any questions thanks! Action Taken: Other: [place] allergy Travel Screening: Not Applicable Date of Service: documented in this encounter Plan of Treatment Not on file documented as of this encounter Visit Diagnoses Not on filedocumented in this encounter Care Teams Railway Traction Line Worker Relationship Specialty Start Date End Date No Ref-Primary, Physician PCP - General 01/05/24 Dianne Syed MD Assigned Allergy Provider 01/12/21 Angeles Hartley MD [address] [place] [address] Surgery 06/27/22 Carlotta Miranda NP [address] [facility] [address] Assigned PCP 04/26/23 documented as of this encounter
--- OUTSIDE RECORDS SUMMARY | 2024-08-18 18:09 | XMS_ITS | Clinical Summary ---
Author Organization [facility] Address [address] [place] [address] Care Team Providers Care Bead Preparer Name Role Phone Dianne Syed MD Unavailable [phone] Angeles Hartley MD Unavailable [phone] Carlotta Miranda NP Unavailable [phone] No Ref-Primary, Physician Primary Care Provider Allergies Active Allergy Reactions Criticality Noted Date Comments Dust Mite Extract Itching,Other (See Comments) 08/20/2007 sneezing Ibuprofen Unknown 02/07/2011 She can tolerate well the 600 mg tablets; but when she takes otc 200 mg/3 tab it causes heartburn, acid reflux. Molds & Smuts Itching,Other (See Comments) 08/20/2007 Other Drug Allergy (See Comments) Unknown 05/17/2008 ALLERGENIC EXTRACTS, Cats and when all the allergens are combined cause her to have mild difficult breathing. Oxycodone Itching,Anaphylaxis High 01/31/2009 tolerates vicodin tolerates vicodin tolerates vicodin tolerates vicodin tolerates vicodin tolerates vicodin tolerates vicodin Medications ALBUTEROL INIndications:Br onchitis with bronchospasm Inhale 2 puffs into the lungs every 4 hours as needed. Active cetirizine (ZYRTEC) 10 MG tablet Take 10 mg by mouth daily Active DIPHENHYDRAMINE 25 MG IN NS 50 ML - NDC ONLY Take 25 mg by mouth daily as needed Active omeprazole (PRILOSEC) [address] capsule TAKE 1 CAPSULE BY MOUTH EVERY DAY 30 MINUTES TO 1 HOUR BEFORE A MEAL 11/19/202 2 Active progesterone (PROMETRIUM) 200 MG capsule Take 200 mg by mouth daily Active SUMAtriptan (IMITREX) 100 MG tablet Take 100 mg by mouth at onset of headache for migraine Active docusate sodium (COLACE) 100 MG capsuleIndicatio ns:Biliary colic Take 1 capsule (100 mg) by mouth 2 times daily 30 capsule 2 Active Additional Information Patient not taking.Reported on 05/03/2024 oxyCODONE-acetam inophen (PERCOCET) 5-325 MG tabletIndication s:Post-op pain Take 1 tablet by mouth every 6 hours as needed for pain 10 tablet 3 Active Additional Information Patient not taking.Reported on 05/03/2024 VENTOLIN HFA 108 (90 Base) MCG/ACT inhaler Inhale 2 puffs into the lungs every 4 hours as needed 3 Active benzonatate (TESSALON) 100 MG capsule Take 100 mg by mouth 3 Active benzonatate (TESSALON) 200 MG capsule Take 200 mg by mouth 2 Active erythromycin (ROMYCIN) 5 MG/GM ophthalmic ointment APPLY 1 STRIP TO LEFT EYE 4 TIMES DAILY FOR 7 DAYS. 3 Active estradiol (ESTRACE) 1 MG tablet Take 1 mg by mouth 1 Active Fish Oil-Cholecalcife rol (GNP FISH OIL +D3) 3382-7774 MG-UNIT CAPS 2 Active oseltamivir (TAMIFLU) 75 MG capsule 3 Active fluticasone-salm eterol (ADVAIR DISKUS) 250-50 MCG/ACT inhalerIndicatio ns:Moderate persistent asthma without complication Inhale 1 puff into the lungs every 12 hours. 60 each 11 4 Active budesonide-formo terol (SYMBICORT) 80-4.5 MCG/ACT InhalerIndicatio ns:Moderate persistent asthma without complication Inhale 1-2 puffs as needed. May use up to 12 puffs per day. 20.4 g 2 4 Active Active Problems Problem Noted Date Diagnosed Date Epigastric pain 06/24/2022 Generalized abdominal pain 06/24/2022 Indigestion 06/24/2022 Migraine without aura and wi thout status migrainosus, not intractable 03/29/2022 Overview (06/24/2022): She recounts history of undiagnosed migraines without [...] so will try imitrex as a trial Lipoma of left upper extremity 03/20/2022 Overview (06/24/2022): Added automatically from request for surgery [id number] Gastritis 02/19/2022 COVID-19 11/19/2021 History of colonic polyps 12/15/2019 Benign neoplasm of colon 06/02/2019 Diverticular disease of large intestine 04/19/20 19 Hemorrhoids 04/19/2019 Polyp of colon 04/19/2019 Migraine headache 04/15/2019 Hypothyroidism 04/15/2019 Allergic rhinitis due to dust mite 09/15/2018 Allergic rhinitis due to animal (cat) (dog) hair and dander 09/15/2018 Seasonal allergic rhinitis due to pollen 019 S/P hysterectomy 11/05/2016 Mild persistent asthma without complication 09/28 Seasonal allergic rhinitis due to fungal spores 10/07/2014 Overview (12/12/2020): Replacement Utility updated for latest IMO load Attention deficit disorder 02/13/2006 Overview (12/29/2020): Overview: Epic Other disorder of impulse control 02/13/2006 Allergy 10/11/2002 Asthma without status asthmaticus 10/11/2002 Skin lesion 10/11/2002 Immunizations Name Administration Dates Next Due COVID-19 MONOVALENT 12+ (Pfizer) 11/14/2020,042 12/2020 COVID-19 Monovalent 12+ (Pfizer 2021) 12/10/2021 DT (PEDS <7y) 04/16/1993 Flu, Unspecified 03/25/2013 Hepatitis A (ADULT 19+) 09/18/1995 Influenza (H1N1) 07/11/2009 Influenza (IIV3) PF 04/09/2012, 1,05/01/2010,2008,05/20/2008,03/30/2006 Influenza (prior to 2023) 05/02/2009 Influenza Vaccine >6 months,quad, PF 04/25/2020, 03/25/2013 Pneumo Conj 13-V (2010&after) 04/25/2020 Pneumococcal 23 valent 04/15/2019 TDAP (Adacel,Boostrix) 07/29/2012 Td,adult,historic,unspecified 07/12/2005 Typhoid IM 03/31/2007,05/29/1988 Yellow Fever 03/31/2007 Family History Medical History Relation Comments C.A.D. Father Cancer Father Coronary Artery Disease Father Cerebrovascular Disease Paternal Grandfather Cerebrovascular Disease Paternal Grandmother Relation Status Comments Brother Alive Father Mother Alive Paternal Grandfather Paternal Grandmother Sister Alive Social History Tobacco Use Types Packs/Day Years Used Date Smoking Tobacco: Never Smokeless Tobacco: Never Tobacco Cessation:Counseling Given: Not Answered Alcohol Use Standard Drinks/Week Comments Yes 0 (1 standard drink = 0.6 oz pure alcohol) Alcoholic Drinks/day: white wine once in a great while PHQ-2 Answer Date Recorded PHQ-2 Score 0 04/25/2020 Adolescent Education Answer Date Record ed Getting School Help Needed Not on file 03/31 Comments No Sex and Gender Information Value Date Recorded Sex Assigned at Female 07/26/2021 8:26 AM TUBE INSPECTOR Legal Sex Female 4:53 AM TUBE INSPECTOR Gender Identity Female 07/26/2021 8:26 AM TUBE INSPECTOR Sexual Orientation Straight 07/26/2021 8: 26 AM TUBE INSPECTOR Last Filed Vital Signs Vital Sign Reading Time Taken Comments Blood Pressure 121/57 06/27/2022 7:25 PM TUBE INSPECTOR Pulse 75 05/03/2024 11:28 AM TUBE INSPECTOR Temperature 36.8 C (98.3 F) 06/27/2022 7:25 PM TUBE INSPECTOR Respiratory Rate 20 05/03/2024 11:2 8 AM TUBE INSPECTOR Oxygen Saturation 97% 05/03/2024 11: 28 AM TUBE INSPECTOR Inhaled Oxygen Concentration - - Weight 72.5 kg (159 lb 12.8 oz) 03/31/2023 9:01 AM CDT Height 165.1 cm (5' 5) 06/27/2022 2:36 AM TUBE INSPECTOR Body Mass Index 26.59 06/27/2022 2:36 AM TUBE INSPECTOR Plan of Treatment Health Maintenance Due Date Last Done Comments ADVANCE CARE PLANNING 1965 ANNUAL REVIEW OF HM ORDERS 1967 ASTHMA ACTION PLAN [address] CT COLONOGRAPHY 1967 FIT 1967 FLEX SIG 1967 sDNA (Cologuard) 1967 HEPATITIS B IMMUNIZATION (1 of 3 - 19+ 3-dose series) 10/14/1986 TSH W/FREE T4 REFLEX 04/25/2021 04/25/2020, 04/15/20 19 COVID-19 Vaccine ( season) 2024 12/10/2021, 11/14/2020, 10/24/2020 INFLUENZA VACCINE (#1) 2024 , 04/08/2019, 04/08/2019, Additional history exists ZOSTER IMMUNIZATION (2 of 2) 03/23/2024 01/27/2024 PHQ-2 (once per calendar year) 2024 04/25/2020 ASTHMA CONTROL TEST 10/31/2024 05/03/2024, 03/31/2023, 12/10/2021, Additional history exists YEARLY PREVENTIVE VISIT 01/14/2025 01/15/20 24, 10/19/2020, 04/25/2020, Additional history exists LIPID 04/25/2025 04/25/2020, 04/15/2019 Pneumococcal Vaccine: 50+ Years (3 of 3 - PCV20 or PCV21) 04/25/2025 04/25/2020, 04/15/2019 GLUCOSE 06/27/2025 06/27/2022, 12/11/2021, 02/04/2022, Additional history exists MAMMO SCREENING 08/25/2025 08/25/2023, 08/01, 04/09/2019, Additional history exists COLONOSCOPY 12/17/2025 12/18/2023, 11/28, 12/13/2019 COLORECTAL CANCER SCREENING 12/17/2025 DTAP/TDAP/TD IMMUNIZATION (3 - Td or Tdap) 01/14/2034 01/15/2024, 07/29/2012, 07/12/2005, Additional history exists PAP Discontinued 07/29/2012 HIV SCREENING Completed 04/15/2019 HEPATITIS C SCREENING Completed 01/15/2024 HPV IMMUNIZATION Aged Out No longer e ligible based on patient's age to complete this topic MENINGITIS IMMUNIZATION Aged Out No l onger eligible based on patient's age to complete this topic Procedures Procedure Name Priority Date/Time Associated Diagnosis Comments MAMMOGRAM - HIM SCAN 08/25/2023 12:00 AM TUBE INSPECTOR BASIC METABOLIC PANEL STAT 06/27/2022 2:57 AM TUBE INSPECTOR TSH Routine 04/25/2020 8:33 AM CDT LIPID PROFILE Routine 04/25/2020 8:33 AM CDT COLONOSCOPY - HIM SCAN 12/13/2019 HIV ANTIGEN ANTIBODY COMBO Routine 04/15/2019 8:43 AM CDT from Last 3 Months or Most Recently Relevant to Health Maintenance Results * MAMMOGRAM - HIM SCAN (08/25/2023 12:00 AM TUBE INSPECTOR) Anatomical Region Laterality Modality Other 08/25/2023 us Provider Outside IMG MAMMOGRAPHY ORDERABLES Phyllis l Result * (ABNORMAL) Basic metabolic panel (06/27/2022 2:57 AM TUBE INSPECTOR) Sodium 137 136 - 145 mmol/L 06/27/2022 3:29 AM TUBE INSPECTOR [facility] Potassium 3.6 3.5 - 5.0 mmol/L 06/27/2022 3:29 AM TUBE INSPECTOR [facility] Chloride 104 98 - 107 mmol/L 06/27/2022 3:29 AM [facility] Carbon Dioxide (CO2) 22 22 - 31 mmol/L 06/27/2022 3:29 AM [facility] Anion Gap 11 5 - 18 mmol/L 06/27/2022 3:29 AM [facility] Urea Nitrogen 17 8 - 22 mg/dL 06/27/2022 3:29 AM [facility] Creatinine 0.82 0.60 - 1.10 mg/dL 06/27/2022 3:29 AM [facility] Calcium 9.5 8.5 - 10.5 mg/dL 06/27/2022 3:29 AM [facility] Glucose 143(H) 70 - 125 mg/dL 06/27/2022 3:29 AM [facility] GFR Estimate 85 >60 mL/min/1.7 3m2 06/27/2022 3:29 AM [facility] Comment:Effective May 312020 eGFRcr in adults is calculated using the 2020 CKD-EPI creatinine equation which includes age and gender (Ramandeep et al., NEJM, DOI: 10.1056/JLYJaq9915077) Blood BLOOD SPECIMEN / Unknown Venipuncture / Unknown 06/27/2022 2:57 AM TUBE INSPECTOR 06/27/2022 3:10 AM TUBE INSPECTOR Kumar Dick MD LAB - BLOOD ORDERABLES Phyllis l Result [facility] [address] [facility] [place], [place] [address] [phone] * TSH (04/25/2020 8:33 AM CDT) TSH 3.78 0.30 - 5.00 uIU/mL 04/25/2020 5:00 PM CDT Blood specimen (specimen) Venipuncture / Unknown 04/25/2020 8:33 AM CDT 04/25/2020 4:02 PM CDT Eduardo Hong CNP LAB - BLOOD ORDERABLES Final Result * (ABNORMAL) Lipid Profile (04/25/2020 8:33 AM CDT) Triglycerides 169(H) <=149 mg/dL 04/25/2020 4:45 PM CDT Cholesterol 211(H) <=199 mg/dL 04/25/2020 4:45 PM CDT LDL Cholesterol Calculated 122 <=129 mg/dL 04/25/2020 4:45 PM CDT Direct Measure HDL 55 >=50 mg/dL 2019 4:45 PM CDT Patient Fasting > 8hrs? Yes 04/25/2020 4:45 PM CDT Blood specimen (specimen) Venipuncture / Unknown 04/25/2020 8:33 AM CDT 04/25/2020 4:02 PM CDT Eduardo Hong INDUSTRIAL DIAMOND POLISHER LAB - BLOOD ORDERABLES Final Result * COLONOSCOPY - HIM SCAN (12/13/2019) Historical Provider PROCEDURES Final Result * HIV Antigen Antibody Combo (04/15/2019 8:43 AM CDT) HIV Antigen Antibody Combo Negative Negative 04/15/2019 4:30 PM CDT [facility] Blood specimen (specimen) Venipuncture / Unknown 04/15/2019 8:43 AM CDT 04/15/2019 2:43 PM CDT Narrative [facility] - 04/15/2019 4:30 PM CDT Method is Kohli HIV Ag/Ab for the detection of HIV p24 antigen, HIV-1 antibodies and HIV-2 antibodies. Carlotta Miranda INFORMATION TECHNOLOGY OFFICER LAB - BLOOD ORDERABLES Final Re sult [facility] [address] [place] [address], [facility] [address] [place] [address] from Last 3 Months or Most Recently Relevant to Health Maintenance Insurance [facility] [place] [address] [employer] [address] [facility] [place] [address] [employer] Advance Directives For more information, please contact: [phone] * Full Code (Latest Code Status on File) Date Activated Date Inactivated Comments 06/27/2022 5:00 AM 06/27/2022 9:51 PM All basic and advanced life-sustaining interventions are performed as appropriate Question Answer Comments Code status determined by: Discussion with patie nt/ legal decision maker Care Teams Bead Preparer Relationship Specialty Start Date End Date No Ref-Primary, Physician PCP - General 01/05/24 Dianne Syed MD Assigned Allergy Provider 01/12/21 Angeles Hartley MD [address] [place] [address] Surgery 06/27/22 Carlotta Miranda NP [facility] [place] [address] Assigned PCP 04/26/23
--- OUTSIDE RECORDS SUMMARY | 2024-08-18 18:09 | XMS_ITS | Encounter Summary ---
[facility] Address [address] [place] [address] Care Team Providers Care Fitting Room Attendant Name Role Phone Gertrude Agosto MD Primary Care Provider [phone] Encounter Details Date Type Department Care Team (Late st Contact Info) Description 06/11/2012 Correspondence [facility] [address] [place] [address] Mallory Carrasco MD [address] [place] [address] FMLA Social History Tobacco Use Types Packs/Day Years [...] as of this encounter Progress Notes * Mallory Carrasco MD - 06/11/2012 12:00 AM CST OAT SPRAYER documented in this encounter Plan of Treatment Not on file documented as of this encounter Visit Diagnoses Not on filedocumented in this encounter Care Teams Fitting Room Attendant Relationship Specialty Start Date End Date Gertrude Agosto MD [address] [place] [address] PCP - General 12/29/17 documented as of this encounter
--- OUTSIDE RECORDS SUMMARY | 2024-08-18 18:09 | XMS_ITS | Encounter Summary ---
Author Organization [facility] Address [address] [place] [address] Care Team Providers Care Batch Freezer Name Role Phone Gertrude Agosto MD Primary Care Provider [phone] Encounter Details Date Type Department Care Team (Late st Contact Info) Description 06/05/2012 Correspondence [facility] [address] [place] [place] [address] Mallory Carrasco MD [address] [place] [address] REPORT OF WORK ABILITY Social History Tobacco Use Types Packs/Day Years [...] Progress Notes * Mallory Carrasco MD - 06/05/2012 12:00 AM CST N FACTORS ADVISOR LEAD documented in this encounter Plan of Treatment Not on file documented as of this encounter Visit Diagnoses Not on filedocumented in this encounter Care Teams Batch Freezer Relationship Specialty Start Date End Date Gertrude Agosto MD [address] [place] [address] PCP - General 12/29/17 documented as of this encounter
--- OUTSIDE RECORDS SUMMARY | 2024-08-18 18:09 | XMS_ITS | Encounter Summary ---
Author Organization [employer] Address [address] [place] [address] Care Team Providers Care Rn Imaging Name Role Phone Gertrude Agosto MD Primary Care Provider [phone] Encounter Details Date Type Department Care Team (Late st Contact Info) Description 06/08/2012 Correspondence [facility] [address] [place] [address] Mallory Carrasco MD [address] [place] [address] REPORT OF WORK ABILITY Social History Tobacco [...] Progress Notes * Mallory Carrasco MD - 06/08/2012 12:00 AM CST EMENT INTERVIEWER documented in this encounter Plan of Treatment Not on file documented as of this encounter Visit Diagnoses Not on filedocumented in this encounter Care Teams Rn Imaging Relationship Specialty Start Date End Date Gertrude Agosto MD [address] [place] [address] PCP - General 12/29/17 documented as of this encounter
--- OUTSIDE RECORDS SUMMARY | 2024-08-18 18:09 | XMS_ITS | Encounter Summary ---
Author Organization [facility] Address [address] [place] [address] Care Team Providers Care Fiberglass Roller Name Role Phone Gertrude Agosto MD Primary Care Provider [phone] Encounter Details Date Type Department Care Team (Late st Contact Info) Description 01/12/2012 Correspondence Urgent Care at [facility] [address] [place], [place] [address]. [place] [address] PROOF OF DELIVERY Social History Tobacco Use [...] as of this encounter Progress Notes * [facility], ADULT - 01/12/2012 12:00 AM CDT documented in this encounter Plan of Treatment Not on file documented as of this encounter Visit Diagnoses Not on filedocumented in this encounter Care Teams Fiberglass Roller Relationship Specialty Start Date End Date Gertrude Agosto MD [address] [place] [address] PCP - General 12/29/17 documented as of this encounter
[2024-08-18 18:14] LABS: Carboxyhemoglobin* 1.3 % (0.0-5.0); Lactate* 0.9 mmol/L (0.5-1.9)
[2024-08-18 18:17] LABS: Basophils Absolute Auto 0.05 K/uL (0.00-0.30); Basophils Percent Auto 0.9 % (0.0-3.0); Eosinophils Percent Auto 5.7 % (0.0-7.0); Hematocrit 42.5 % (33.0-51.0); Hemoglobin* 13.9 gm/dL (12.0-16.0); Lymphocytes Absolute Auto 1.24 K/uL (0.90-2.90); Lymphocytes Percent Auto 23.5 % (20-44); Mean Corpuscular HGB Conc 33 gm/dL (32-36); Mean Corpuscular Hemoglobin 29 pg (26-34); Mean Corpuscular Volume 90 fL (80-100); Monocytes Percent Auto 9.9 % (0.0-11.0); Neutrophils Absolute Auto 3.16 K/uL (1.7-7.0); Platelet Count* 299 K/uL (140-440); RDW Coefficient of Variation % 12.7 % (11.5-15.5); Red Blood Count 4.73 m/uL (4.00-5.20); White Blood Count* 5.27 K/uL (4.50-11.00)
[2024-08-18] MEDS: 0.9 % SODIUM CHLORIDE 1000 ml 1,000 ML IV (18:17)
[2024-08-18] MEDS: dexAMETHasone 10 MG/ML inj PO (18:18)
[2024-08-18] MEDS: KETOROLAC 15 MG/ML inj IVP (18:21)
[2024-08-18] MEDS: METOCLOPRAMIDE HCL 5 MG/ML INJ 10 MG IVP (18:21)
[2024-08-18] MEDS: diphenhydrAMINE 50 MG/ML inj 12.5 MG IVP (18:21)
[2024-08-18 18:23] LABS: Slide Review Reflex No
[2024-08-18 18:29] LABS: Chloride* 104 mmol/L (96-114)
[2024-08-18 18:30] LABS: Potassium* 4.1 mmol/L (3.6-5.1); Sodium* 137 mmol/L (135-149)
[2024-08-18 18:32] LABS: Creatinine* 0.8 mg/dL (0.5-1.5); Est. Creatinine Clearance* 70.66; Estimated Glomerular Filt Rate 86 ml/min
[2024-08-18 18:33] LABS: Anion Gap 9 mEq/L (7-15); Blood Urea Nitrogen* 16 mg/dL (7-30); Calcium* 9.2 mg/dL (8.4-10.6); Carbon Dioxide* 24 mmol/L (20-32); Glucose* 108 mg/dL (60-115)
[2024-08-18 18:50] LABS: Procalcitonin* 0.08 ng/mL (<0.50)
[2024-08-18 19:15] LABS: PCR FLU A Negative PCR FLU A (Negative); PCR FLU B Negative PCR FLU B (Negative); PCR RSV POSITIVE PCR RSV (Negative); SARS PCR* Negative SARS-CoV-2 (Negative)
[2024-08-18] MEDS: diazePAM 5 MG/ML inj IV (19:26)
[2024-08-18] MEDS: OLANZapine 5 MG/ML inj IVP (19:26)
[2024-08-18 19:30] VITALS: BP 117/69; PULSE 82; O2SAT 90
[2024-08-18 20:00] VITALS: BP 123/71; PULSE 76; O2SAT 94
[2024-08-18] MEDS: droperidoL 2.5 MG/ML inj IV (20:23)
[2024-08-18 20:30] VITALS: PULSE 82; O2SAT 92
[2024-08-18 21:00] VITALS: BP 124/67; PULSE 78; O2SAT 93
== END 2024-08-18 21:30 | disposition home or self-care (01) ==
PROVIDERS: Emergency Provider Emergency Medicine
DX: R51.9 Headache, unspecified (principal); B97.4 Respiratory syncytial virus as the cause of diseases classified elsewhere
CPT/HCPCS: 36415; 70450; 70496; 70498; 71046; 80048; 82375; 83605; 84145; 85025; 87631; 96374; 96375; 99284; 99285; J1100; J1200; J1790; J1885; J2765; J3360; J7030; Q9967

== ENCOUNTER 2025-01-03 04:58 | Emergency (ER) | payer BC, SELFPAY ==
--- OUTSIDE RECORDS SUMMARY | 2025-01-03 05:00 | XMS_ITS | Encounter Summary ---
Author Organization [facility] Address [address] [place] [address] Care Team Providers Care Supervisor Cd Area Name Role Phone Carlotta Miranda NP Primary Care Provider [phone] Dianne Syed MD Unavailable [phone] Carlotta Miranda NP Unavailable [phone] Angeles Hartley MD Unavailable [phone] Carlotta Miranda NP Unavailable [phone] Carlotta Miranda NP Unavailable [phone] Eduardo Hong LEACHER Unavailable Carlotta Miranda NP Unavailable [phone] No Ref-Primary, Physician Primary Care Provider [...] Sex Assigned at Female 07/26/2021 8:26 AM PRIVATE BRANCH EXCHANGE SERVICE ADVISER Legal Sex Female 4:53 AM PRIVATE BRANCH EXCHANGE SERVICE ADVISER Gender Identity Female 07/26/2021 8:26 AM PRIVATE BRANCH EXCHANGE SERVICE ADVISER Sexual Orientation Straight 07/26/2021 8: 26 AM PRIVATE BRANCH EXCHANGE SERVICE ADVISER documented as of this encounter Plan of Treatment Not on file documented as of this encounter Visit Diagnoses Not on filedocumented in this encounter Additional Health Concerns Infection Onset Date Last Indicated Resolved Time Rule Out COVID-19 07/26/2021 07/26/2021 07/27/2021 11:15 AM PRIVATE BRANCH EXCHANGE SERVICE ADVISER documented as of this encounter Care Teams Supervisor Cd Area Relationship Specialty Start Date End Date Carlotta Miranda NP [address] [place] [address] PCP - General 04/09/19 01/04/24 No Ref-Primary, Physician PCP - General 01/05/24 Dianne Syed MD [address] [place], [place] [address] [id number] Assigned Allergy Provider 01/12/21 Carlotta Miranda NP [facility] [place] [address] Assigned PCP 12/13/20 06/14/22 Angeles Hartley MD [address] [address] Surgery 06/27/22 Carlotta Miranda NP [address] [place] [address] Assigned PCP 08/24/22 01/24/23 Carlotta Miranda NP [address] [place] [address] Assigned Pain Medication Provider 08/31/22 01/03/23 Eduardo Hong, NALDO [address] [place] [address] Assigned PCP 01/25/23 04/25/23 Carlotta Miranda NP [address] [place] [address] Assigned PCP 04/26/23 08/21/24 documented as of this encounter
--- OUTSIDE RECORDS SUMMARY | 2025-01-03 05:00 | XMS_ITS | Encounter Summary ---
Author Organization [facility] Address [address] [place] [address] Care Team Providers Care Claims Configuration Analyst Name Role Phone Dianne Syed MD Unavailable [phone] [place] Hartley MD Unavailable [phone] Carlotta Miranda NP Unavailable [phone] No Ref-Primary, Physician Primary Care Provider Encounter Details Date Type Department Care Team (Late st Contact Info) Description 05/06/2024 [facility] [address] [address] Amina Shook RN Social History Tobacco Use Types Packs/Day [...] Sex Assigned at Female 07/26/2021 8:26 AM QUALITY CONTROL TECH Legal Sex Female 4:53 AM QUALITY CONTROL TECH Gender Identity Female 07/26/2021 8:26 AM QUALITY CONTROL TECH Sexual Orientation Straight 07/26/2021 8: 26 AM QUALITY CONTROL TECH documented as of this encounter Plan of Treatment Not on file documented as of this encounter Visit Diagnoses Not on filedocumented in this encounter Care Teams Claims Configuration Analyst Relationship Specialty Start Date End Date No Ref-Primary, Physician PCP - General 01/05/24 Dianne Syed MD Assigned Allergy Provider 01/12/21 Angeles Hartley MD [address] [place] [address] Surgery 06/27/22 Carlotta Miranda NP [address] [place] [address] [place] [address] Assigned PCP 04/26/23 08/21/24 documented as of this encounter
--- OUTSIDE RECORDS SUMMARY | 2025-01-03 05:00 | XMS_ITS | Encounter Summary ---
Author Organization [facility] Address [address] [place] [address] Care Team Providers Care Dependency Director Name Role Phone Carlotta Miranda NP Primary Care Provider [phone] Dianne Syed MD Unavailable [phone] Carlotta Miranda NP Unavailable [phone] Angeles Hartley MD Unavailable [phone] Carlotta Miranda NP Unavailable [phone] Carlotta Miranda NP Unavailable [phone] Eduardo Hong CNP Unavailable [phone] Carlotta Miranda NP Unavailable [phone] Ref-Primary, Physician Primary Care Provider Encounter Details Date Type Department Care Team (Late st Contact Info) Description 11/09/2021 MyC Medical Advice [address] [address] Brian Mayer, RN Social History Tobacco [...] Sex Assigned at Female 07/26/2021 8:26 AM DIRECTOR OF PUBLIC RELATIONS Legal Sex Female 4:53 AM DIRECTOR OF PUBLIC RELATIONS Gender Identity Female 07/26/2021 8:26 AM DIRECTOR OF PUBLIC RELATIONS Sexual Orientation Straight 07/26/2021 8: 26 AM DIRECTOR OF PUBLIC RELATIONS documented as of this encounter Plan of Treatment Not on file documented as of this encounter Visit Diagnoses Not on filedocumented in this encounter Care Teams Dependency Director Relationship Specialty Start Date End Date Carlotta Miranda NP [address] [place], [place] [address] [address] PCP - General 04/09/19 01/04/24 No Ref-Primary, Physician PCP - General 01/05/24 Dianne Syed MD [address] [place], [place] [address] [address] [address] Assigned Allergy Provider 01/12/21 Carlotta Miranda NP [facility] [place] [address] Assigned PCP 12/13/20 06/14/22 Angeles Hartley MD [facility] [address] MD Surgery 06/27/22 Carlotta Miranda NP [address] [place] [address] Assigned PCP 08/24/22 01/24/23 Carlotta Miranda NP [address] [place] [address] Assigned Pain Medication Provider 08/31/22 01/03/23 Eduardo Hong, NALDO [address] [place] [address] [address] [place] [address] Assigned PCP 01/25/23 04/25/23 Carlotta Miranda NP [address] [facility] [place] [address] Assigned PCP 04/26/23 08/21/24 documented as of this encounter
--- OUTSIDE RECORDS SUMMARY | 2025-01-03 05:00 | XMS_ITS | Clinical Summary ---
Author Organization [facility] Address [address] [place] [address] Care Team Providers Care Group Dynamics Instructor Name Role Phone [facility], [facility] Primary Care Provide r Allergies Active Allergy [...] ASTHMATICUS 10/11/2002 ALLERGY UNSPECIFIED, SEASONAL 10/11/2002 Immunizations Immunization Administration Dates Next Due COVID-19 vaccine (VisitorsCafe 30mcg/0.3mL) 12YO+ HERBER-SUCROSE PF, MDV 12/10/2021 DT [...] on file Legal Sex Female 6:28 AM DATA INTEGRITY CONSULTANT Gender Identity Not on file Sexual Orientation [...] Health Maintenance Due Date Last Done Comments Hepatitis B series for 19+ (1 of 3 - 19+ 3-dose series) 10/14/1986 Mammogram for age 45-75 10/14/2012 COVID-19 vaccine series ( season) 2024 12/10/2021, 11/14/2020, 10/24/2020 Zoster (shingles) series for age 50+ (2 of 2) 03/23/2024 01/27/2024 BMI (ht and wt on same day) for age 18+ 01/14/2025 01/15/2024, 03/29/2022 Depression screening for age 12+ 01/14/2025 01/15/2024, 01/15/2024 Influenza Vaccine (#1) 2025 , 04/08/2019, 03/30/2019, Additional history exists Pneumococcal series for age 50+ (3 of 3 - PCV20 or PCV21) 04/25/2025 04/25/2020, 04/15/2019 Lipids for age 45-75 01/14/2029 01/15/2024, 10/02/2022, 06/07/2022, Additional history exists Colonoscopy through age 75 12/17/2033 12/18/2023, Tetanus booster 01/14/2034 01/15/2024, 07/02, 07/12/2005, Additional history exists HIV for age 15-65 Addressed 04/15/2019 (Ve [...] - 199 mg/dL 01/15/2024 7:22 PM CDT [facility] Comment: Cholesterol, Total Reference Ranges Desirable <200 mg/dL Borderline 200-239 mg/dL High >=240 mg/dL TRIGLYCERIDES 102 <150 mg/dL 01/15/2024 7:22 PM CDT [facility] HDL CHOLESTEROL 72 >40 mg/dL 7:22 PM CDT [facility] NON-HDL CHOLESTEROL 182(H) <145 mg/dl 01/15/2024 7:22 PM CDT [facility] CHOL/HDL RATIO 3.53 <4.50 01/15/2024 7:22 PM CDT [facility] LDL CHOLESTEROL 162(H) <=130 mg/dL 01/15/2024 7:22 PM CDT [facility] VLDL CHOLESTEROL 20 <=30 mg/dL 01/15/2024 7:22 PM CDT [facility] PROVIDER ORDERED STATUS RANDOM 01/15/2024 7:22 PM CDT [facility] Blood BLOOD SPECIMEN / Unknown Venipuncture / Unknown 01/15/2024 9:24 AM CDT 01/15/2024 9:30 AM CDT us Akilah Montoya MD CHEMISTRY Final Re sult Performing Organization Address [facility] Co de Phone Number [facility] [address] [place] [address], [place] * ANTI HCV (01/15/2024 9:24 AM CDT) HEPATITIS C ANTIBODY Non-Reacti ve Non-React brianda 01/15/2024 7:22 PM CDT [facility] Comment:Please note, per www .CDC.gov: [...] OUTS Final Re sult Performing Organization Address [facility]/ZIP Co de Phone Number [facility] [address] [place] [address], [place] * SCAN-COLONOSCOPY (12/18/2023 4:00 PM CDT) Narrative Procedure Note Salima Montgomery MD - 12/18/2023 3:17 PM CDT [facility] [address], [address], [place] [address] Patient Name: Nazia Soliman Gender: Female Exam Date: 12/18/2023 Visit Number: [id number] Age: 58 Years Date of : 1965 Attending MD: Salima Montgomery MD Medical Record#: [id number] Procedure: Colonoscopy Indications: History of serrated polyposis [...] signed by: Renee Bellamy MD Interpreted at [facility], [address] [place] [address] Orders Instruction(s)/Education: Instruction/Education Timeframe Assessment Colon Polyps [...] Montgomery MD 12/18/2023 cc: Sara Yarbrough CNP us Salima Montgoemry MD OTHER Final Resu lt from Last 3 Months or Most Recently Relevant to Health Maintenance Insurance [facility] CARE CARE [place] [id number] Advance Directives * Full Code (Latest Code [...] 6:09 AM 01/31/2009 11:39 AM Care Teams Group Dynamics Instructor Relationship Specialty Start Date End Date Clinic[address]ELIA CLE[address] [place] [address] PCP - General 01/23/21
--- OUTSIDE RECORDS SUMMARY | 2025-01-03 05:00 | XMS_ITS | Encounter Summary ---
Author Organization [facility] Address [address] [place] [address] Care Team Providers Care Pulp Piler Name Role Phone Carlotta Miranda NP Primary Care Provider [phone] Dianne Syed MD Unavailable [phone] Carlotta Miranda NP Unavailable [phone] Angeles Hartley MD Unavailable [phone] Carlotta Miranda NP Unavailable [phone] Carlotta Miranda NP Unavailable [phone] Eduardo Hong ROOFING SUPERVISOR Unavailable Carlotta Miranda NP Unavailable [phone] No Ref-Primary, Physician Primary Care Provider [...] Sex Assigned at Female 07/26/2021 8:26 AM REGIONAL COMMERCIAL SALES MANAGER Legal Sex Female 4:53 AM REGIONAL COMMERCIAL SALES MANAGER Gender Identity Female 07/26/2021 8:26 AM REGIONAL COMMERCIAL SALES MANAGER Sexual Orientation Straight 07/26/2021 8: 26 AM REGIONAL COMMERCIAL SALES MANAGER documented as of this encounter Plan of [...] Out COVID-19 07/26/2021 07/26/2021 07/27/2021 11:15 AM REGIONAL COMMERCIAL SALES MANAGER documented as of this encounter Care Teams Pulp Piler Relationship Specialty Start Date End Date Carlotta Miranda NP [address] [place] [address] PCP - General 04/09/19 01/04/24 No Ref-Primary, Physician PCP - General 01/05/24 Dianne Syed MD [address] [place] [address] Assigned Allergy Provider 01/12/21 Carlotta Miranda NP [address] [place] [address] Assigned PCP 12/13/20 06/14/22 Angeles Hartley MD [address] [place] [address] MD Surgery 06/27/22 Carlotta Miranda NP [address] [place] [address] Assigned PCP 08/24/22 01/24/23 Carlotta Miranda NP [address] [place] [address] Assigned Pain Medication Provider 08/31/22 01/03/23 Eduardo Hong CNP [address] [facility], [address] [place] [address] Assigned PCP 01/25/23 04/25/23 Carlotta Miranda NP [address] [place] [address] [place] [address] Assigned PCP 04/26/23 08/21/24 documented as of this encounter
--- OUTSIDE RECORDS SUMMARY | 2025-01-03 05:00 | XMS_ITS | Encounter Summary ---
Author Organization [facility] Address [address] [place] [address]. [place] [address] Care Team Providers Care Wind Turbine Design Engineer Name Role Phone Dianne Syed MD Unavailable [phone] Angeles Hartley MD Unavailable [phone] Carlotta Miranda NP Unavailable [phone] Ref-Primary, Physician Primary Care Provider Reason for Visit * Reason Comments Medication Refill Encounter Details Date Type Department Care Team (Late st Contact Info) Description 04/05/[address] [address] Dianne Syed MD [address] [address] Medication Refill Social History Tobacco [...] Sex Assigned at Female 07/26/2021 8:26 AM HAND COKE DRAWER Legal Sex Female 4:53 AM HAND COKE DRAWER Gender Identity Female 07/26/2021 8:26 AM HAND COKE DRAWER Sexual Orientation Straight 07/26/2021 8: 26 AM HAND COKE DRAWER documented as of this encounter Miscellaneous Notes * Telephone Encounter - Amina Ziegler, RN - 04/05/2024 12:49 PM CDT Already responded documented in this encounter Plan of Treatment Not on file documented as of this encounter Visit Diagnoses Diagnosis Moderate persistent asthma without complication Unspecified asthma documented in this encounter Care Teams Wind Turbine Design Engineer Relationship Specialty Start Date End Date No Ref-Primary, Physician PCP - General 01/05/24 Dianne Syed MD Assigned Allergy Provider 01/12/21 Angeles Hartley MD [address] [place] [address] Surgery 06/27/22 Carlotta Miranda NP [address] [place] [address] [place] [address] Assigned PCP 04/26/23 08/21/24 documented as of this encounter
--- OUTSIDE RECORDS SUMMARY | 2025-01-03 05:00 | XMS_ITS | Encounter Summary ---
Author Organization [facility] Address [address] [place] [address]. [place] [address] Care Team Providers Care Forepart Rounder Name Role Phone Carlotta Miranda NP Primary Care Provider Dianne Syed MD Unavailable [phone] Angeles Hartley MD Unavailable [phone] Carlotta Miranda NP Unavailable [phone] Eduardo Hong CNP Unavailable Carlotta Miranda NP Unavailable No Ref-Primary, Physician Primary Care Provider Reason for Visit * Reason Comments Medication Refill Encounter Details Date Type Department Care Team (Late st Contact Info) Description 01/19/[address] [address] Dianne Syed MD [address] [address] Medication Refill Social History Tobacco [...] Sex Assigned at Female 07/26/2021 8:26 AM CHIEF CLINICAL DIETITIAN Legal Sex Female 4:53 AM CHIEF CLINICAL DIETITIAN Gender Identity Female 07/26/2021 8:26 AM CHIEF CLINICAL DIETITIAN Sexual Orientation Straight 07/26/2021 8: 26 AM CHIEF CLINICAL DIETITIAN documented as of this encounter Plan of Treatment Not on file documented as of this encounter Visit Diagnoses Diagnosis Moderate persistent asthma without complication Unspecified asthma documented in this encounter Care Teams Forepart Rounder Relationship Specialty Start Date End Date Carlotta Miranda NP [address] [place] [address] [place] [address] PCP - General 04/09/19 01/04/24 No Ref-Primary, Physician PCP - General 01/05/24 Dianne Syed MD [address] [place], [place] [address] [address] Assigned Allergy Provider 01/12/21 Angeles Hartley MD [facility] [address] [address] Surgery 06/27/22 Carlotta Miranda NP [address] [place] [address] Assigned PCP 08/24/22 01/24/23 Eduardo Hong CNP [address] [place] [address] [address] [place] [address] Assigned PCP 01/25/23 04/25/23 Carlotta Miranda NP [address] [place], [place] [address] [address] Assigned PCP 04/26/23 08/21/24 documented as of this encounter
--- OUTSIDE RECORDS SUMMARY | 2025-01-03 05:00 | XMS_ITS | Encounter Summary ---
Author Organization [facility] Address [address] [place] [address]. [place] [address] Care Team Providers Care Litigation Secretary Name Role Phone Dianne Syed MD Unavailable [phone] Angeles Hartley MD Unavailable [phone] No Ref-Primary, Physician Primary Care Provider Encounter Details Date Type Department Care Team (Late st Contact Info) Description 12/13/[address] [place] [address] Dianne Syed MD [address] [facility] [address] [place] [address] Social History Tobacco Use Types Packs/Day Years [...] Sex Assigned at Female 07/26/2021 8:26 AM CLERK ENTRY LEVEL Legal Sex Female 4:53 AM CLERK ENTRY LEVEL Gender Identity Female 07/26/2021 8:26 AM CLERK ENTRY LEVEL Sexual Orientation Straight 07/26/2021 8: 26 AM CLERK ENTRY LEVEL documented as of this encounter Miscellaneous Notes * Telephone Encounter - Kate Anguiano - 12/13/2024 2:50 PM CDT Reminder to set up your 1 year follow up for asthma with the hydramatic mechanic Dr. Syed. Left a message 12/13. documented in this encounter Plan of Treatment Not on file documented as of this encounter Visit Diagnoses Not on filedocumented in this encounter Care Teams Litigation Secretary Relationship Specialty Start Date End Date No Ref-Primary, Physician PCP - General 01/05/24 Dianne Syed MD Assigned Allergy Provider 01/12/21 Angeles Hartley MD [address] [place] [address] Surgery 06/27/22 documented as of this encounter
--- OUTSIDE RECORDS SUMMARY | 2025-01-03 05:00 | XMS_ITS | Encounter Summary ---
Author Organization [facility] Address [address] [place] [address] Care Team Providers Care Transit Vehicle Inspector Name Role Phone Dianne Syed MD Unavailable [phone] Angeles Hartley MD Unavailable [phone] Carlotta Miranda NP Unavailable [phone] No Ref-Primary, Physician Primary Care Provider Encounter Details Date Type Department Care Team (Late st Contact Info) Description 03/08/2024 MyC Medical Advice [address] [place] [address] Amina Shook RN Social History Tobacco Use [...] Sex Assigned at Female 07/26/2021 8:26 AM GRAVURE PRESS SET UP OPERATOR Legal Sex Female 4:53 AM GRAVURE PRESS SET UP OPERATOR Gender Identity Female 07/26/2021 8:26 AM GRAVURE PRESS SET UP OPERATOR Sexual Orientation Straight 07/26/2021 8: 26 AM GRAVURE PRESS SET UP OPERATOR documented as of this encounter Plan of Treatment Not on file documented as of this encounter Visit Diagnoses Not on filedocumented in this encounter Care Teams Transit Vehicle Inspector Relationship Specialty Start Date End Date No Ref-Primary, Physician PCP - General 01/05/24 Dianne Syed MD Assigned Allergy Provider 01/12/21 Angeles Hartley MD [address] [place] [id number] Surgery 06/27/22 Carlotta Miranda NP [address] [place] [address] [place] [address] Assigned PCP 04/26/23 08/21/24 documented as of this encounter
--- OUTSIDE RECORDS SUMMARY | 2025-01-03 05:00 | XMS_ITS | Encounter Summary ---
Author Organization [facility] Address [address] [place] [address] Care Team Providers Care Blasting Entry Specialist Name Role Phone Gertrude Agosto MD Primary Care Provider [phone] Encounter Details Date Type Department Care Team (Late st Contact Info) Description 11/28/2013 Emergency Room External to [facility], Provider HOARSENESS Social History Tobacco [...] Start Date Job End Date work for [employer] Not on file Not on fi le Not on file documented as of this encounter Plan of Treatment Not on file documented as of this encounter Visit Diagnoses Not on filedocumented in this encounter Care Teams Blasting Entry Specialist Relationship Specialty Start Date End Date Gertrude Agosto MD [address] [place] [address] PCP - General 12/29/17 documented as of this encounter
--- OUTSIDE RECORDS SUMMARY | 2025-01-03 05:00 | XMS_ITS | Encounter Summary ---
Author Organization [facility] Address [address] [place] [address] Care Team Providers Care Humanities Professor Name Role Phone Carlotta Miranda NP Primary Care Provider [phone] Dianne Syed MD Unavailable [phone] Angeles Hartley MD Unavailable [phone] Carlotta Miranda NP Unavailable [phone] Carlotta Miranda NP Unavailable [phone] Eduardo Hong PROCESS CONTROL BOARD OPERATOR Unavailable Carlotta Miranda NP Unavailable [phone] Ref-Primary, Physician Primary Care Provider Encounter Details Date Type Department Care Team (Late st Contact Info) Description 12/17/2022 [facility] Medical Advice [address] [address] Amina Shook, RN Social History Tobacco Use Types Packs/Day [...] Sex Assigned at Female 07/26/2021 8:26 AM RESTRIKE HAMMER OPERATOR Legal Sex Female 4:53 AM RESTRIKE HAMMER OPERATOR Gender Identity Female 07/26/2021 8:26 AM RESTRIKE HAMMER OPERATOR Sexual Orientation Straight 07/26/2021 8: 26 AM RESTRIKE HAMMER OPERATOR documented as of this encounter Plan of Treatment Not on file documented as of this encounter Visit Diagnoses Not on filedocumented in this encounter Care Teams Humanities Professor Relationship Specialty Start Date End Date Carlotta Miranda NP [address] [place] [address] PCP - General 04/09/19 01/04/24 No Ref-Primary, Physician PCP - General 01/05/24 Dianne Syed [place] [place] [address] [place] [address] Assigned Allergy Provider 01/12/21 Angeles Hartley MD [address] [facility] [address] [place] [address] MD Surgery 06/27/22 Carlotta Miranda NP [address] [place] [address] Assigned PCP 08/24/22 01/24/23 Carlotta Miranda NP [address] [place] [address] Assigned Pain Medication Provider 08/31/22 01/03/23 Eduardo Hong CNP [address] [facility] [address] [place] [address] Assigned PCP 01/25/23 04/25/23 Carlotta Miranda [place] [address] [place] [address] Assigned PCP 04/26/23 08/21/24 documented as of this encounter
--- OUTSIDE RECORDS SUMMARY | 2025-01-03 05:00 | XMS_ITS | Clinical Summary ---
Author Organization [facility] Address [address] [place] [address] Care Team Providers Care Tv Production Assistant Name Role Phone Gertrude Agosto MD Primary Care Provider [phone] Source Comments You are receiving this document as you are listed as the primary care provider,follow-up provider, or the patient has been referred to you for consultation.This is in compliance with the Medicare andOhiohealth Hardin Memorial Hospitalcaid EHR Incentive Program,which states Providers who transition their patient to another setting of careor provider of care or refers their patient to another provider of care shouldprovide summary care record for each transition of care or referral. [employer]Earth Allergies Active Allergy Reactions Criticality Noted Date [...] (03/20/2022): Added automatically from request for surgery [id number] Laryngitis 05/01/2009 Other disorder of impulse control [...] yrs) 09/18/1995 Influenza IIV4 (Quadrivalent ) 0.5mL (97327) 04/25/2020,03/25/2013 Influenza Vaccine (3+years) ([facility]) 05/02/2009 Influenza, Unspecified Formulation 03/30/2019, PCV13 [...] Start Date Job End Date work for [employer] Not on file Not on fi le Not on file Last Filed Vital Signs Vital Sign Reading Time Taken Comments Blood Pressure 90/63 08/29/2022 9:51 AM REGISTRATION SCHEDULING SPECIALIST Pulse 78 08/29/2022 9:51 AM REGISTRATION SCHEDULING SPECIALIST Temperature 36.9 C (98.4 F) 08/29/2022 9:51 AM REGISTRATION SCHEDULING SPECIALIST Respiratory Rate 16 04/02/2022 8:03 AM CDT Oxygen Saturation 96% 08/29/2022 9:51 AM REGISTRATION SCHEDULING SPECIALIST Inhaled Oxygen Concentration - - Weight 71.3 kg (157 lb 3.2 oz) 08/29/2022 9:51 A M REGISTRATION SCHEDULING SPECIALIST Height 165.1 cm (5' 5) 04/02/2022 6:25 [...] 05/10/2009 (Historical Completion) Cholesterol 08/06/2017 08/06/2012 Zoster/Shingles Vaccine (1 of 2) 10/14/2017 DTaP/Tdap/Td Vaccine (4 - Tdap) 07/29/2022 07/29/2012, 07/12/2005, 04/16/1993 COVID-19 Vaccine ( - season) 2024 12/10/2021, 11/14/2020, 10/24/2020 Influenza Vaccine (#1) 2025 0, 04/08/2019, 03/30/2019, Additional history exists Pneumococcal Vaccine 50+ Yrs (3 of 3 - PCV) 04/25/2025 04/25/2020, 04/15/2019 HepA Vaccine Aged Out 09/18/1995 No longer eligi ble based on patient's age to complete this topic Hib Vaccine Aged Out No longer eligi ble based on patient's age to complete this topic IPV (Polio) Vaccine Aged Out No longe r eligible based on patient's age to complete this topic MCV4 Vaccine Aged Out No longer eligi ble based on patient's age to complete this topic Meningococcal B Vaccine Aged Out No l onger eligible based on patient's age to complete this topic Procedures Procedure Name Priority Date/Time Associated Diagnosis Comments LIPID PANEL & DIRECT LDL (IF NEEDED) Routine 08/06/2012 8:03 AM REGISTRATION SCHEDULING SPECIALIST Screening for lipoid disorders PAP TEST, ROUTINE Routine 07/29/2012 5:1 0 PM REGISTRATION SCHEDULING SPECIALIST Screening for malignant neoplasm of the cervix from Last 3 Months or Most Recently Relevant to Health Maintenance Results * (ABNORMAL) LIPID PANEL AND DIRECT LDL(IF NEEDED) (08/06/2012 8:03 AM REGISTRATION SCHEDULING SPECIALIST) Cholesterol 201(H) 0 - 199 mg/dl [facility] Triglyceride 76 0 - 149 mg/dl [facility] HDL 63 >40 mg/dl [facility] LDL, Calc. 123 0 - 129 mg/dl [facility] Non HDL Chol, Calc 138 mg/dl [facility] Hours Fasting 12 hours [facility] 08/06/2012 8:03 AM REGISTRATION SCHEDULING SPECIALIST 08/06/2012 8:53 AM REGISTRATION SCHEDULING SPECIALIST us Rojas Carrasco MD LAB_1 Final Res ult Performing Organization Address City/State/[facility] Co de Phone Number [facility] [address] [address] * PAP TEST, ROUTINE (07/29/2012 5:10 PM REGISTRATION SCHEDULING SPECIALIST) Cytology (NOTE) Outpatient Services Director Cytology Report Patient Name: NAZIA PALMA Taken: 07/29/2012 Received: 07/31/2012 Reported: 08/14/2012 Physician(s): ROJAS CARRASCO ([id number]) Source of Specimen Liquid routine Pap, cervical/endocervi pepito: Specimen Adequacy Satisfactory for evaluation. Endocervical component present. Final Cytologic Interpretation/Res ult NEGATIVE FOR INTRAEPITHELIAL LESION OR MALIGNANCY (NILM) Electronically Signed Out By EMILIA Gallagher (ASCP) Nelda Triana CT (ASCP) Deena Garcia CT (ASCP) Pap Smear History Date of Last Menstrual Period: No LMP recorded Microscopic Description Microscopic examination is performed. [facility] Department of Pathology [address] [place] [address] [place] 07/29/2012 5:10 PM REGISTRATION SCHEDULING SPECIALIST 07/31/2012 6:55 AM REGISTRATION SCHEDULING SPECIALIST us Rojas Carrasco MD LAB_1 Final Res ult [facility] [address] [phone] from Last 3 Months or Most Recently Relevant to Health Maintenance Insurance CARE MNCARE CARE MNCARE CARE MNCARE Care Teams Tv Production Assistant Relationship Specialty Start Date End Date Gertrude Agosto MD [address] [place] [address] PCP - General 12/29/17
--- OUTSIDE RECORDS SUMMARY | 2025-01-03 05:00 | XMS_ITS | Encounter Summary ---
Author Organization [facility] Address [address] [place] [address] Care Team Providers Care Computer Software Engineer Name Role Phone Carlotta Miranda NP Primary Care Provider [phone] Dianne Syed MD Unavailable [phone] Carlotta Miranda NP Unavailable [phone] Angeles Hartley MD Unavailable [phone] Carlotta Miranda NP Unavailable [phone] Carlotta Miranda NP Unavailable Eduardo Hong CNP Unavailable Carlotta Miranda NP Unavailable [phone] Ref-Primary, Physician Primary Care Provider Encounter Details Date Type Department Care Team (Late st Contact Info) Description [facility]/25/2020 [facility] Fatoumata Mag[facility] [address] [facility] [address] [place] [id number] Social History Tobacco Use Types Packs/Day Years Used Date Smoking Tobacco: Never Smokeless Tobacco: Never Alcohol Use Standard Drinks/Week Comments Yes 0 (1 standard drink = 0.6 oz pure alcohol) Alcoholic Drinks/day: white wine once in a great while PHQ-2 Answer Date Recorded PHQ-2 Score 0 04/25/2020 Comments No Sex and Gender Information Value Date Recorded Sex Assigned at Female 07/26/2021 8:26 AM BLOCK HANDLER Legal Sex Female 4:53 AM BLOCK HANDLER Gender Identity Female 07/26/2021 8:26 AM BLOCK HANDLER Sexual Orientation Straight 07/26/2021 8: 26 AM BLOCK HANDLER documented as of this encounter Plan of Treatment Not on file documented as of this encounter Visit Diagnoses Not on filedocumented in this encounter Additional Health Concerns Infection Onset Date Last Indicated Resolved Time Rule Out COVID-19 07/26/2021 07/26/2021 07/27/2021 11:15 AM BLOCK HANDLER documented as of this encounter Care Teams Computer Software Engineer Relationship Specialty Start Date End Date Carlotta Miranda NP [address] [place] [address] PCP - General 04/09/19 01/04/24 No Ref-Primary, Physician PCP - General 01/05/24 Dianne Syed MD [address] [place] [address] Assigned Allergy Provider 01/12/21 Carlotta Miranda NP [address] [place] [address] Assigned PCP 12/13/20 06/14/22 Angeles Hartley MD [address] [place] [address] Surgery 06/27/22 Carlotta Miranda NP [address] [place] [address] Assigned PCP 08/24/22 01/24/23 Carlotta Miranda NP [address] [place] [address] Assigned Pain Medication Provider 08/31/22 01/03/23 Eduardo Hong CNP [facility] [facility] [place] [address] Assigned PCP 01/25/23 04/25/23 Carlotta Miranda NP [address] [place] [address] Assigned PCP 04/26/23 08/21/24 documented as of this encounter
--- OUTSIDE RECORDS SUMMARY | 2025-01-03 05:01 | XMS_ITS | Clinical Summary ---
Author Organization [facility] Address [address] [place] [address] Care Team Providers Care Network Systems Administrator Name Role Phone Dianne Syed MD Unavailable [phone] Angeles Hartley MD Unavailable [phone] Ref-Primary, Physician Primary Care Provider [...] MINUTES TO 1 HOUR BEFORE A MEAL 2 Active progesterone (PROMETRIUM) 200 MG capsule [...] Fish Oil-Cholecalcife rol (GNP FISH OIL +D3) 0514-1097 MG-UNIT CAPS 2 Active oseltamivir (TAMIFLU) 75 [...] (06/24/2022): Added automatically from request for surgery [id number] Gastritis 02/19/2022 COVID-19 11/19/2021 History of colonic [...] without status asthmaticus 10/11/2002 Skin lesion 10/11/2002 Encounters Date Type Department Care Team Description 12/13/2024 Telephone [facility] [address] [facility] [address] [place] [address] Dianne Syed MD 10/20/2024 Telephone [facility] [address] [facility] [address] [place] [address] Dianne Syed MD from Last 3 Months Immunizations Immunization Administration Dates Next Due COVID-19 MONOVALENT 12+ (Pfizer) 11/14/2020,09/29 COVID-19 Monovalent 12+ (Pfizer 2021) 12/10/2021 DT (PEDS <7y) 04/16/1993 Flu, Unspecified 03/25/2013 Hepatitis A (VAQTA)(ADULT 19+) 09/18/1995 Influenza (H1N1) 07/11/2009 Influenza (IIV3) [...] Sex Assigned at Female 07/26/2021 8:26 AM CRA OFFICER Legal Sex Female 4:53 AM CRA OFFICER Gender Identity Female 07/26/2021 8:26 AM CRA OFFICER Sexual Orientation Straight 07/26/2021 8: 26 AM CRA OFFICER Last Filed Vital Signs Vital Sign Reading Time Taken Comments Blood Pressure 121/57 06/27/2022 7:25 PM CRA OFFICER Pulse 75 05/03/2024 11:28 AM CRA OFFICER Temperature 36.8 C (98.3 F) 06/27/2022 7:25 PM CRA OFFICER Respiratory Rate 20 05/03/2024 11:2 8 AM CRA OFFICER Oxygen Saturation 97% 05/03/2024 11: 28 AM CRA OFFICER Inhaled Oxygen Concentration - - Weight 72.5 kg (159 lb 12.8 oz) 03/31/2023 9:01 AM CDT Height 165.1 cm (5' 5) 06/27/2022 2:36 AM CRA OFFICER Body Mass Index 26.59 06/27/2022 2:36 AM CRA OFFICER Plan of Treatment Health Maintenance Due Date Last Done Comments ADVANCE CARE PLANNING 1965 ANNUAL REVIEW OF HM ORDERS 1967 ASTHMA ACTION PLAN 1967 [address] COLONOGRAPHY 1967 FIT 1967 FLEX SIG 1967 sDNA (Cologuard) 1967 HEPATITIS B VACCINE (1 of 3 - 19+ 3-dose series) 10/14/1986 TSH W/FREE T4 REFLEX 04/25/2021 04/25/2020, 04/15/20 19 COVID-19 VACCINE ( season) 2024 12/10/2021, 11/14/2020, 10/24/2020 ZOSTER VACCINE (2 of 2) 03/23/2024 01/27/2024 PHQ-2 (once per calendar year) 2024 04/25/2020 ASTHMA CONTROL TEST 10/31/2024 05/03/2024, 03/31/2023, 12/10/2021, Additional history exists YEARLY PREVENTIVE VISIT 01/14/2025 01/15/20 24, 04/25/2020, 04/25/2020, Additional history exists INFLUENZA VACCINE (Season Ended) 2025 04/25/2020, 04/08/2019, 04/08/2019, Additional history exists LIPID 04/25/2025 04/25/2020, 04/15/2019 PNEUMOCOCCAL VACCINE 50+ YEARS (3 of 3 - PCV20 or PCV21) 04/25/2025 04/25/2020, 04/15/2019 DIABETES SCREENING 06/27/2025 06/27/2022, 1 08/25/2021, 02/04/2022, Additional history exists MAMMO SCREENING 08/25/2025 08/25/2023, 08/01, 04/09/2019, Additional history exists COLONOSCOPY 12/17/2025 12/18/2023, 11/28, 12/13/2019 COLORECTAL CANCER SCREENING 12/17/2025 DTAP/TDAP/TD VACCINE (3 - Td or Tdap) 01/14/2034 01/15/2024, 07/29/2012, 07/12/2005, Additional history exists PAP Discontinued 07/29/2012 HIV SCREENING Completed 04/15/2019 HEPATITIS C SCREENING Completed 01/15/2024 HPV VACCINE Aged Out No longer eligi ble based on patient's age to complete this topic MENINGITIS VACCINE Aged Out No longer eligible based on patient's age to complete this topic Procedures Procedure Name Priority Date/Time Associated Diagnosis Comments MAMMOGRAM - HIM SCAN 08/25/2023 12:00 AM CRA OFFICER BASIC METABOLIC PANEL STAT 06/27/2022 2:57 AM CRA OFFICER TSH Routine 04/25/2020 8:33 AM CDT LIPID PROFILE Routine 04/25/2020 8:33 AM CDT COLONOSCOPY - HIM SCAN 12/13/2019 HIV ANTIGEN ANTIBODY COMBO Routine 04/15/2019 8:43 AM CDT from Last 3 Months or Most Recently Relevant to Health Maintenance Results * MAMMOGRAM - HIM SCAN (08/25/2023 12:00 AM CRA OFFICER) Anatomical Region Laterality Modality Other 08/25/2023 us Provider Outside IMG MAMMOGRAPHY ORDERABLES Phyllis l Result * (ABNORMAL) Basic metabolic panel (06/27/2022 2:57 AM [facility]) Sodium 137 136 - 145 mmol/L 06/27/2022 3:29 AM [facility] Potassium 3.6 3.5 - 5.0 mmol/L 06/27/2022 3:29 AM [facility] Chloride 104 98 - 107 mmol/L 06/27/2022 3:29 AM [facility] Carbon Dioxide (CO2) 22 22 - 31 mmol/L 06/27/2022 3:29 AM [facility] Anion Gap 11 5 - 18 mmol/L 06/27/2022 3:29 AM [facility] Urea Nitrogen 17 8 - 22 mg/dL 06/27/2022 3:29 AM [facility] Creatinine 0.82 0.60 - 1.10 mg/dL 06/27/2022 3:29 AM [facility] Calcium 9.5 8.5 - 10.5 mg/dL 06/27/2022 3:29 AM [facility] Glucose 143(H) 70 - 125 mg/dL 06/27/2022 3:29 AM [facility] GFR Estimate 85 >60 mL/min/1.7 3m2 06/27/2022 3:29 AM [facility] Comment:Effective May 312020 eGFRcr in adults is calculated using the 2020 CKD-EPI creatinine equation which includes age and gender (Ramandeep et al., NEJM, DOI: 10.1056/AZQVtr1956284) Blood BLOOD SPECIMEN / Unknown Venipuncture / Unknown 06/27/2022 2:57 AM CRA OFFICER 06/27/2022 3:10 AM [facility] us Kumar Dick MD LAB - BLOOD ORDERABLES Phyllis l Result [facility] [address] [place] [address], [facility] [phone] * TSH (04/25/2020 8:33 AM CDT) TSH 3.78 0.30 - 5.00 uIU/mL 04/25/2020 5:00 PM CDT Blood specimen (specimen) Venipuncture / Unknown 04/25/2020 8:33 AM CDT 04/25/2020 4:02 PM CDT Eduardoorion Morgannicolas [facility] - BLOOD ORDERABLES Final Result * [...] 8:33 AM CDT 04/25/2020 4:02 PM CDT Result [facility] Eduardo Familia Hal [facility] - BLOOD ORDERABLES Final Result * COLONOSCOPY - HIM SCAN (12/13/2019) [facility] Provider PROCEDURES Final Result * HIV Antigen Antibody Combo (04/15/2019 8:43 AM CDT) HIV Antigen Antibody Combo Negative Negative 04/15/2019 4:[address] [facility] Blood specimen (specimen) Venipuncture / Unknown 04/15/2019 8:43 AM CDT 04/15/2019 2:43 PM CDT Narrative [facility] - 04/15/2019 4:30 PM CDT Method is Kohli HIV Ag/Ab for the detection of HIV p24 antigen, HIV-1 antibodies and HIV-2 antibodies. Carlotta Miranda ASW SPECIALIST LAB - BLOOD ORDERABLES Final Re sult [facility] [address] [place] [address], [facility] [address] [place] [address] from Last 3 Months or Most Recently Relevant to Health Maintenance [facility] [place] [address] [place] [address] [employer] Advance Directives For more information, please contact: [phone] * Full Code (Latest Code Status on File) Date Activated Date Inactivated Comments 06/27/2022 5:00 AM 06/27/2022 9:51 PM All basic and advanced life-sustaining interventions are performed as appropriate Question Answer Comments Code status determined by: Discussion with patie nt/ legal decision maker Care Teams Network Systems Administrator Relationship Specialty Start Date End Date No Ref-Primary, Physician PCP - General 01/05/24 Dianne Syed MD Assigned Allergy Provider 01/12/21 Angeles Hartley MD [address] [place] [address] MD Surgery 06/27/22
--- OUTSIDE RECORDS SUMMARY | 2025-01-03 05:01 | XMS_ITS | Encounter Summary ---
Author Organization [facility] Address [address] [place] [address] Care Team Providers Care Postal Inspector Name Role Phone Gertrude Agosto MD Primary Care Provider [phone] Encounter Details Date Type Department Care Team [...] Primary/Referring, Phy - 06/03/2012 12:00 AM CST RNATIONAL FLIGHT ATTENDANT documented in this encounter Plan of Treatment Not on file documented as of this encounter Visit Diagnoses Not on filedocumented in this encounter Care Teams Postal Inspector Relationship Specialty Start Date End Date Gertrude Agosto MD [address] [place] [facility] [place] [address] PCP - General 12/29/17 documented as of this encounter
--- OUTSIDE RECORDS SUMMARY | 2025-01-03 05:01 | XMS_ITS | Encounter Summary ---
Author Organization [facility] Address [address] [place] [address] Care Team Providers Care Graphite Grinder Name Role Phone Gertrude Agosto MD Primary Care Provider [phone] Encounter Details Date Type Department Care Team (Late st Contact Info) Description 06/05/2012 Correspondence [facility] [address] [place] [address] Mallory Carrasco MD [address] [place] [address] REPORT OF WORK ABILITY Social History Tobacco [...] Carrasco MD - 06/05/2012 12:00 AM CST AGNETIST documented in this encounter Plan of Treatment Not on file documented as of this encounter Visit Diagnoses Not on filedocumented in this encounter Care Teams Graphite Grinder Relationship Specialty Start Date End Date Gertrude Agosto MD [address] [place] [address] PCP - General 12/29/17 documented as of this encounter
--- OUTSIDE RECORDS SUMMARY | 2025-01-03 05:01 | XMS_ITS | Encounter Summary ---
Author Organization [facility] Address [address] [place] [address] Care Team Providers Care Wellfield Technician Name Role Phone Gertrude Agosto MD Primary Care Provider [phone] Encounter Details Date Type Department Care Team (Late st Contact Info) Description 01/12/2012 Correspondence [facility] [address] [place], [place] [address]. [place] [address] PROOF OF DELIVERY Social History [...] on filedocumented in this encounter Care Teams Wellfield Technician Relationship Specialty Start Date End Date Gertrude Agosto MD [address] [place] [address] PCP - General 12/29/17 documented as of this encounter
--- OUTSIDE RECORDS SUMMARY | 2025-01-03 05:01 | XMS_ITS | Encounter Summary ---
Author Organization [facility] Address [address] [place] [address] Care Team Providers Care Technical Information Specialist Name Role Phone Gertrude Agosto MD Primary Care Provider [phone] Encounter Details Date Type Department Care Team (Late st Contact Info) Description 06/08/2012 Correspondence [facility] [address] [place] [address] Mallory Carrasco MD [address] [place] [address] REPORT OF WORK ABILITY Social History Tobacco [...] Carrasco MD - 06/08/2012 12:00 AM CST OMS AND IMMIGRATION OFFICER documented in this encounter Plan of Treatment Not on file documented as of this encounter Visit Diagnoses Not on filedocumented in this encounter Care Teams Technical Information Specialist Relationship Specialty Start Date End Date Gertrude Agosto MD [address] [place] [address] PCP - General 12/29/17 documented as of this encounter
--- OUTSIDE RECORDS SUMMARY | 2025-01-03 05:01 | XMS_ITS | Encounter Summary ---
Author Organization [facility] Address [address] [place] [address] Care Team Providers Care Underwriting Specialist Name Role Phone Gertrude Agosto MD Primary Care Provider [phone] Encounter Details Date Type Department Care Team (Late st Contact Info) Description 06/11/2012 Correspondence [facility] [address] [place] [address] Mallory Carrasco MD [address] [place] [address] FMLA Social History Tobacco Use Types Packs/Day [...] Carrasco MD - 06/11/2012 12:00 AM CST OLL EXAMINER documented in this encounter Plan of Treatment Not on file documented as of this encounter Visit Diagnoses Not on filedocumented in this encounter Care Teams Underwriting Specialist Relationship Specialty Start Date End Date Gertrude Agosto MD [address] [place] [address] PCP - General 12/29/17 documented as of this encounter
[2025-01-03 05:03] VITALS: PULSE 96; TEMP 38.1
[2025-01-03 05:17] VITALS: BP 112/82; PULSE 96; RESP 20; TEMP 38.1; O2SAT 96; BMI 26.6
--- NOTE | 2025-01-03 05:43 | ED.HA ---
HPI - Headache General Date Seen: 01/03/25 <Mati Villasenor MD - Last Filed: 01/03/25 08:22> Chief Complaint: Fever <Mati Villasenor MD - Last Filed: 01/03/25 08:22> Stated Complaint: Migraine, fever, sore throat <Mati Villasenor MD - Last Filed: 01/03/25 08:22> Time Seen by Provider: 01/03/25 05:28 <Mati Villasenor MD - Last Filed: 01/03/25 08:22> Source: patient, family, RN notes reviewed and old records reviewed <Mati Villasenor MD - Last Filed: 01/03/25 08:22> Mode of arrival: ambulatory <Mati Villasenor MD - Last Filed: 01/03/25 08:22> Limitations: no limitations <Mati Villasenor MD - Last Filed: 01/03/25 08:22> History of Present Illness HPI Narrative: Patient is a 59-year-old female who presents here with a headache behind her right eye characteristic of her migraine headaches, she think she has developed a fever also she has had some chills at home she has not taken her temperature at home she has a sore throat associated with this and a bit of a runny nose, and her has been sick for the last 10 days. He did go to urgent care triple swab was negative strep test was negative, and is only now feeling better. Patient tells me whenever she gets sick like this he gets a migraine headache, this is been worked up in the past I do see a previous note here, they did do a head CT and a CTA at that time, she has had a previous LP done at [facility] and 1 go through that again. She did take her normal sumatriptan at home, which did not work for this headache. She is requesting medications for this. I do noted on a previous visit she received Toradol IV fluids Benadryl and Reglan, this was supplemented by droperidol and also Zyprexa before she got relief. <Mati Villasenor MD - Last Filed: 01/03/25 08:22> MD elicited complaint: headache <aMti Villasenor MD - Last Filed: 01/03/25 08:22> Pertinent past history: migraines <Mati Villasenor MD - Last Filed: 01/03/25 08:22> Onset (ago): hour(s) <Mati Villasenor MD - Last Filed: 01/03/25 08:22> Onset description: gradually <Mati Villasenor MD - Last Filed: 01/03/25 08:22> Location: right, frontal, temporal and retro-orbital <Mati Villasenor MD - Last Filed: 01/03/25 08:22> Severity: moderate <Mati Villasenor MD - Last Filed: 01/03/25 08:22> Quality & Timing: aching, throbbing, sharp and similar to previous headaches <Mati Villasenor MD - Last Filed: 01/03/25 08:22> Exacerbating factors: movement of head/neck, sitting/standing, light and noise <Mati Villasenor MD - Last Filed: 01/03/25 08:22> Relieving factors: nothing <Mati Villasenor MD - Last Filed: 01/03/25 08:22> Context: occurred at rest <Mati Villasenor MD - Last Filed: 01/03/25 08:22> Treatments prior to arrival: ibuprofen and migraine medication <Mati Villasenor MD - Last Filed: 01/03/25 08:22> Related Data Home Medications: Home Medications ?Medication ?Instructions ?Recorded ?Confirmed fluticasone propionate 230 2 inh inhalation BID 08/18/24 01/03/25 mcg-salmeterol 21 mcg/actuation HFA inhaler (Advair HFA) loratadine 10 mg tablet 10 mg PO DAILY 08/18/24 01/03/25 (Allerclear) sumatriptan succinate 25 mg tablet 25 mg PO Q2-4H PRN 08/18/24 01/03/25 (Imitrex) <Mati Villasenor MD - Last Filed: 01/03/25 08:22> Allergies/Adverse Reactions: Allergies Allergy/AdvReac Type Severity Reaction Status Date / Time cat dander Allergy Verified 08/18/24 18:22 house dust Allergy Verified 08/18/24 18:22 mold Allergy Verified 08/18/24 18:22 <Mati Villasenor MD - Last Filed: 01/03/25 08:22> Review of Systems Status of ROS: Reports: 10 or more systems reviewed and unremarkable except as noted in History and below <Mati Villasenor MD - Last Filed: 01/03/25 08:22> [facility] Social History: Social History Smoking Status: Former smoker Do you use any of these nicotine containing products: None Second hand tobacco smoke exposure: No Non-prescribed substance use: denies use service: No <Mati Villasenor MD - Last Filed: 01/03/25 08:22> Exam Narrative: Exam Narrative: On examination in room 1 she is talkative she appears nontoxic, alert oriented x3, pupils equal round reactive to light there is no scleral icterus redness her TMs bilaterally are normal, oropharynx is reddened, with 1+ enlargement, no uvular no abnormality neck is supple, no meningismus is noted. Cranial nerves 3-12 are normal, chest is good air entry bilaterally with no wheezing crackles noted heart sounds are normal her abdomen is soft there is no guarding, neurologically she moves all her upper lower extremity she has normal proximal and distal power, heel-toe testing and fine motor movements fingers nose testing are normal she does not appear photophobic. Skin reveals no rashes. <Mati Villasenor MD - Last Filed: 01/03/25 08:22> Const: Vital Signs, click to edit/add: Vital Signs - 24 hr 01/03/25 05:03 01/03/25 05:17 01/03/25 06:02 Temperature 100.5 F H 100.5 F H 100.5 F H Pulse Rate [Left P ulse Oximeter] 96 96 Respiratory Rate 20 Blood Pressure [Ri ght Upper Arm] 112/82 Pulse Oximetry 96 Oxygen Delivery Me thod Room Air 01/03/25 06:31 01/03/25 08:10 Temperature 100.5 F H 98.1 F Pulse Rate [Left P ulse Oximeter] 79 Respiratory Rate 16 Blood Pressure [Ri ght Upper Arm] 127/65 Pulse Oximetry 98 Oxygen Delivery Me thod Room Air <Mati Villasenor MD - Last Filed: 01/03/25 08:22> Vital Signs, click to edit/add: Vital Signs - 24 hr 01/03/25 05:03 01/03/25 05:17 01/03/25 06:02 Temperature 100.5 F H 100.5 F H 100.5 F H Pulse Rate [Left P ulse Oximeter] 96 96 Respiratory Rate 20 Blood Pressure [Ri ght Upper Arm] 112/82 Pulse Oximetry 96 Oxygen Delivery Me thod Room Air 01/03/25 06:31 01/03/25 08:10 Temperature 100.5 F H 98.1 F Pulse Rate [Left P ulse Oximeter] 79 Respiratory Rate 16 Blood Pressure [Ri ght Upper Arm] 127/65 Pulse Oximetry 98 Oxygen Delivery Me thod Room Air <Leta Raya MD - Last Filed: 01/03/25 09:12> Documenting provider has reviewed patient's vital signs: yes <Mati Villasenor MD - Last Filed: 01/03/25 08:22> Course Course ED Course: Patient felt better after droperidol. She was able to sit up in bed have a conversation. We discussed taking Tylenol and ibuprofen as well to keep fever down should that return. We discussed reasons to return to the ED. Patient felt comfortable being discharged home at this time. <Leta Raya MD - Last Filed: 01/03/25 09:12> Reevaluation(s) Time of Reevaluation #1: 08:20 <Mati Villasenor MD - Last Filed: 01/03/25 08:22> Reevaluation #1: I went and saw the patient, her pain went from a 10/10 to an 8/10, unfortunately she did not get the droperidol that I were in we will give that now, I think if this does not work another option would be low-dose ketamine, following our normal protocol for her pain. I do think she is doing better overall as her vital signs are improved. I will put in a tentative discharge, and signed over to my partner pending how the medication works. I still think that there is no indication here for a LP, or considering sepsis as a cause, I think the likelihood that this is exacerbation of her pre-existing migraine secondary to her viral illness, as her is just getting over this. <Mati Villasenor MD - Last Filed: 01/03/25 08:22> Vital Signs Vital signs: Initial Vital Signs Temperature 100.5 F H 01/03/25 05:03 Temperature Source Temporal Artery Scan 01/03/25 05:03 Pulse Rate 96 01/03/25 05:03 Respiratory Depth Normal 01/03/25 05:03 Sepsis Recent Fever Within 48 Hours Yes 01/03/25 05:03 Sepsis New/Unexplained Change in Mental Status No 01/03/25 05:03 Sepsis Action Taken by Nursing Physician Notified 01/03/25 05:03 Vital Signs Temperature 100.5 F H 01/03/25 05:03 Pulse Rate 96 01/03/25 05:03 Temperature 98.1 F 01/03/25 08:10 Pulse Rate 79 01/03/25 08:10 Respiratory Rate 16 01/03/25 08:10 Blood Pressure 127/65 01/03/25 08:10 Pulse Oximetry 98 01/03/25 08:10 Oxygen Delivery Method Room Air 01/03/25 08:10 <Mati Villasenor MD - Last Filed: 01/03/25 08:22> Initial Vital Signs Temperature 100.5 F H 01/03/25 05:03 Temperature Source Temporal Artery Scan 01/03/25 05:03 Pulse Rate 96 01/03/25 05:03 Respiratory Depth Normal 01/03/25 05:03 Sepsis Recent Fever Within 48 Hours Yes 01/03/25 05:03 Sepsis New/Unexplained Change in Mental Status No 01/03/25 05:03 Sepsis Action Taken by Nursing Physician Notified 01/03/25 05:03 Vital Signs Temperature 100.5 F H 01/03/25 05:03 Pulse Rate 96 01/03/25 05:03 Temperature 98.1 F 01/03/25 08:10 Pulse Rate 79 01/03/25 08:10 Respiratory Rate 16 01/03/25 08:10 Blood Pressure 127/65 01/03/25 08:10 Pulse Oximetry 98 01/03/25 08:10 Oxygen Delivery Method Room Air 01/03/25 08:10 <Leta Raya MD - Last Filed: 01/03/25 09:12> Medications Administered Medications: Discontinued Medications Generic Name Dose Route Start Last Admin Trade Name Freq PRN Reason Stop Dose Admin Acetaminophen 1,000 mg 01/03/25 05:47 01/03/25 06:31 Acetaminophen 500 Mg Tablet PO 01/03/25 05:48 1,000 mg ONCE ONE Administration Dexamethasone 4 mg 01/03/25 06:39 01/03/25 07:09 Dexamethasone 4 Mg/Ml Vial IVP 01/03/25 06:40 4 mg ONCE ONE Administration Diazepam 5 mg 01/03/25 06:32 01/03/25 07:09 Diazepam 5 Mg/Ml Inj IV 01/03/25 06:33 5 mg ONCE ONE Administration Diphenhydramine HCl 25 mg 01/03/25 05:28 01/03/25 06:01 Diphenhydramine 50 Mg/Ml Inj IVP 01/03/25 05:29 25 mg ONCE ONE Administration Droperidol 2.5 mg 01/03/25 06:32 01/03/25 08:18 Droperidol 2.5 Mg/Ml Inj IV 01/03/25 06:33 2.5 mg ONCE ONE Administration Sodium Chloride 1,000 mls @ 1,000 mls/hr 01/03/25 05:30 01/03/25 07:45 0.9 % Sodium Chloride 1000 Ml IV 01/03/25 06:29 Infused .Q1H MAMTA Infusion Metoclopramide HCl 10 mg/ 102 mls @ 306 mls/hr 01/03/25 05:28 01/03/25 07:14 Sodium Chloride IVPB 01/03/25 05:29 Infused ONCE ONE Infusion Ketorolac Tromethamine 30 mg 01/03/25 05:28 01/03/25 06:02 Ketorolac 30 Mg/Ml Inj IVP 01/03/25 05:29 30 mg ONCE ONE Administration <Mati Villasenor MD - Last Filed: 01/03/25 08:22> Discontinued Medications Generic Name Dose Route Start Last Admin Trade Name Freq PRN Reason Stop Dose Admin Acetaminophen 1,000 mg 01/03/25 05:47 01/03/25 06:31 Acetaminophen 500 Mg Tablet PO 01/03/25 05:48 1,000 mg ONCE ONE Administration Dexamethasone 4 mg 01/03/25 06:39 01/03/25 07:09 Dexamethasone 4 Mg/Ml Vial IVP 01/03/25 06:40 4 mg ONCE ONE Administration Diazepam 5 mg 01/03/25 06:32 01/03/25 07:09 Diazepam 5 Mg/Ml Inj IV 01/03/25 06:33 5 mg ONCE ONE Administration Diphenhydramine HCl 25 mg 01/03/25 05:28 01/03/25 06:01 Diphenhydramine 50 Mg/Ml Inj IVP 01/03/25 05:29 25 mg ONCE ONE Administration Droperidol 2.5 mg 01/03/25 06:32 01/03/25 08:18 Droperidol 2.5 Mg/Ml Inj IV 01/03/25 06:33 2.5 mg ONCE ONE Administration Sodium Chloride 1,000 mls @ 1,000 mls/hr 01/03/25 05:30 01/03/25 07:45 0.9 % Sodium Chloride 1000 Ml IV 01/03/25 06:29 Infused .Q1H MAMTA Infusion Metoclopramide HCl 10 mg/ 102 mls @ 306 mls/hr 01/03/25 05:28 01/03/25 07:14 Sodium Chloride IVPB 01/03/25 05:29 Infused ONCE ONE Infusion Ketorolac Tromethamine 30 mg 01/03/25 05:28 01/03/25 06:02 Ketorolac 30 Mg/Ml Inj IVP 01/03/25 05:29 30 mg ONCE ONE Administration <Leta Raya MD - Last Filed: 01/03/25 09:12> MDM - Headache MDM Narrative Medical decision making narrative: Life-threatening differential diagnosis include subarachnoid hemorrhage, meningitis, encephalitis, carbon monoxide poisoning, and intracerebral hemorrhage. Other differential diagnosis include but not limited to migraine, cluster headache, tension headache, [employer] vasculitis, mass lesion, temporal arteritis, click acute closed angle glaucoma, septal and trigeminal neuralgia, sinusitis, closed head injury, and stroke She does have a mild fever here, she usually gets sick and has a migraine headache as I see from previous she visits, her vital signs are otherwise normal, and she is nontoxic. We will try the migraine concoction I will do some basic labs also. Although I think this is likely going to come back is a viral illness <Mati Villasenor MD - Last Filed: 01/03/25 08:22> Differential Diagnosis Differential diagnosis: Likely migraine, tension headache, subarachnoid hemorrhage, headache, meningitis, sinusitis and postconcussion syndrome <Mati Villasenor MD - Last Filed: 01/03/25 08:22> Medical Records Attestation: I reviewed the patient's medical records. <Mati Villasenor MD - Last Filed: 01/03/25 08:22> Lab Data Attestation: I reviewed the patient's lab results. <Mati Villasenor MD - Last Filed: 01/03/25 08:22> Labs: Lab Results 01/03/25 Range/Units 06:00 WBC 12.54 H (4.50-11.00) K/uL RBC 4.81 (4.00-5.20) m/uL Hgb 14.2 (12.0-16.0) gm/dL Hct 42.7 (33.0-51.0) % MCV 89 (80-100) fL MCH 30 (26-34) pg MCHC 33 (32-36) gm/dL RDW Coeff of Jaswant 12.4 (11.5-15.5) % Plt Count 325 (140-440) K/uL Neut % (Auto) 78.7 H (42.0-72.0) % Lymph % (Auto) 12.5 L (20-44) % [place] % (Auto) 6.9 (0.0-11.0) % Eos % (Auto) 0.2 (0.0-7.0) % Baso % (Auto) 0.5 (0.0-3.0) % Neut # (Auto) 9.90 H (1.7-7.0) K/uL Lymph # (Auto) 1.60 (0.90-2.90) K/uL [place] # (Auto) 0.90 (0.00-0.90) K/UL Eos # (Auto) 0.00 (0.00-0.50) K/uL Baso # (Auto) 0.10 (0.00-0.30) K/uL Abs Immat Gran (auto) 0.20 (0.00-0.30) K/uL Imm/Tot Granulo (auto) 1.2 % Sodium 137 (135-149) mmol/L Potassium 4.0 (3.6-5.1) mmol/L Chloride 104 (96-114) mmol/L Carbon Dioxide 25 (20-32) mmol/L Anion Gap 8 (7-15) mEq/L BUN 10 (7-30) mg/dL Creatinine 0.7 (0.5-1.5) mg/dL Estimated Creat Clear 79.79 Estimated GFR 101 ml/min Glucose 125 H (60-115) mg/dL Calcium 9.3 (8.4-10.6) mg/dL C-Reactive Protein 3.7 H (0.5-1.0) mg/dL Procalcitonin 0.09 (<0.50) ng/mL SARS-CoV-2 (PCR) Negative SARS-CoV-2 (Negative) Influenza Type A (PCR) Negative PCR FLU A (Negative) Influenza Type B (PCR) Negative PCR FLU B (Negative) RSV (PCR) Negative PCR RSV (Negative) Group A Strep DNA NOT DETECTED (Not Detectd) <Mati Villasenor MD - Last Filed: 01/03/25 08:22> Lab Results 01/03/25 Range/Units 06:00 WBC 12.54 H (4.50-11.00) K/uL RBC 4.81 (4.00-5.20) m/uL Hgb 14.2 (12.0-16.0) gm/dL Hct 42.7 (33.0-51.0) % MCV 89 (80-100) fL MCH 30 (26-34) pg MCHC 33 (32-36) gm/dL RDW Coeff of Jaswant 12.4 (11.5-15.5) % Plt Count 325 (140-440) K/uL Neut % (Auto) 78.7 H (42.0-72.0) % Lymph % (Auto) 12.5 L (20-44) % [place] % (Auto) 6.9 (0.0-11.0) % Eos % (Auto) 0.2 (0.0-7.0) % Baso % (Auto) 0.5 (0.0-3.0) % Neut # (Auto) 9.90 H (1.7-7.0) K/uL Lymph # (Auto) 1.60 (0.90-2.90) K/uL [place] # (Auto) 0.90 (0.00-0.90) K/UL Eos # (Auto) 0.00 (0.00-0.50) K/uL Baso # (Auto) 0.10 (0.00-0.30) K/uL Abs Immat Gran (auto) 0.20 (0.00-0.30) K/uL Imm/Tot Granulo (auto) 1.2 % Sodium 137 (135-149) mmol/L Potassium 4.0 (3.6-5.1) mmol/L Chloride 104 (96-114) mmol/L Carbon Dioxide 25 (20-32) mmol/L Anion Gap 8 (7-15) mEq/L BUN 10 (7-30) mg/dL Creatinine 0.7 (0.5-1.5) mg/dL Estimated Creat Clear 79.79 Estimated GFR 101 ml/min Glucose 125 H (60-115) mg/dL Calcium 9.3 (8.4-10.6) mg/dL C-Reactive Protein 3.7 H (0.5-1.0) mg/dL Procalcitonin 0.09 (<0.50) ng/mL SARS-CoV-2 (PCR) Negative SARS-CoV-2 (Negative) Influenza Type A (PCR) Negative PCR FLU A (Negative) Influenza Type B (PCR) Negative PCR FLU B (Negative) RSV (PCR) Negative PCR RSV (Negative) Group A Strep DNA NOT DETECTED (Not Detectd) <Leta Raya MD - Last Filed: 01/03/25 09:12> Discharge Plan Discharge Clinical Impression: Headache, migraine, Viral illness, Fever <Mati Villaseonr MD - Last Filed: 01/03/25 08:22> Patient Disposition: Home w/ Parent or Adult <Mati Villasenor MD - Last Filed: 01/03/25 08:22> Condition: Stable <Mati Villasenor MD - Last Filed: 01/03/25 08:22> Instructions: Migraine Headache (ED), Fever in Adults (ED), Upper Respiratory Infection (ED), Viral Syndrome (ED), How to Take a Temperature (ED), Cold Compress or Soak (ED) <Mati Villasenor MD - Last Filed: 01/03/25 08:22> Additional Instructions: Home rest Tylenol regularly for your discomfort, migraine medication as needed, sleep would probably be most advantageous then you can do here. Return here if increasing fevers chills neck pain or stiffness, or any other atypical symptoms <Mati Villasenor MD - Last Filed: 01/03/25 08:22> Activity Level: Light activity <Mati Villasenor MD - Last Filed: 01/03/25 08:22> Light activity <Leta Raya MD - Last Filed: 01/03/25 09:12> Prescriptions: No Action fluticasone propion-salmeterol [Advair HFA] 230-21 mcg/actuation HFA aerosol inhaler 2 inh inhalation BID loratadine [Allerclear] 10 mg tablet 10 mg PO DAILY sumatriptan succinate [Imitrex] 25 mg tablet 25 mg PO Q2-4H PRN Rx Instructions: do not exceed 8 doses per 24 hrs <Mati Villasenor MD - Last Filed: 01/03/25 08:22> Follow Up/Referrals: Provider,Not a Local [Primary Care Provider, Family Practice] <Mati Villasenor MD - Last Filed: 01/03/25 08:22> Stand Alone Forms: My[facility] Info Instructions <Mati Villasenor MD - Last Filed: 01/03/25 08:22>
[2025-01-03 06:02] VITALS: TEMP 38.1
[2025-01-03] MEDS: METOCLOPRAMIDE HCL 10 MG in 0.9 % SODIUM CHLORIDE 100 ml 100 ML 306 MG IVPB (06:03)
[2025-01-03 06:16] LABS: Hematocrit 42.7 % (33.0-51.0); Hemoglobin* 14.2 gm/dL (12.0-16.0); Immature Granulocytes Pct Auto 1.2 %; Mean Corpuscular HGB Conc 33 gm/dL (32-36); Mean Corpuscular Hemoglobin 30 pg (26-34); Mean Corpuscular Volume 89 fL (80-100); RDW Coefficient of Variation % 12.4 % (11.5-15.5); Red Blood Count 4.81 m/uL (4.00-5.20); White Blood Count* 12.54 K/uL (4.50-11.00)
[2025-01-03 06:17] LABS: Immature Granulocytes Abs Auto 0.20 K/uL (0.00-0.30); Lymphocytes Absolute Auto 1.60 K/uL (0.90-2.90); Slide Review Reflex No
[2025-01-03 06:31] VITALS: TEMP 38.1
[2025-01-03] MEDS: ACETAMINOPHEN 500 MG TABLET 1000 MG PO (06:31)
[2025-01-03 06:37] LABS: Strep A DNA Probe* NOT DETECTED (Not Detectd)
[2025-01-03 06:45] LABS: Chloride* 104 mmol/L (96-114); Potassium* 4.0 mmol/L (3.6-5.1); Sodium* 137 mmol/L (135-149)
[2025-01-03 06:48] LABS: Blood Urea Nitrogen* 10 mg/dL (7-30); Creatinine* 0.7 mg/dL (0.5-1.5); Est. Creatinine Clearance* 79.79; Estimated Glomerular Filt Rate 101 ml/min
[2025-01-03 06:49] LABS: Anion Gap 8 mEq/L (7-15); Calcium* 9.3 mg/dL (8.4-10.6); Carbon Dioxide* 25 mmol/L (20-32); Glucose* 125 mg/dL (60-115)
[2025-01-03 06:50] LABS: PCR FLU A Negative PCR FLU A (Negative); PCR FLU B Negative PCR FLU B (Negative); PCR RSV Negative PCR RSV (Negative); SARS PCR* Negative SARS-CoV-2 (Negative)
[2025-01-03 07:06] LABS: Procalcitonin* 0.09 ng/mL (<0.50)
[2025-01-03] MEDS: diazePAM 5 MG/ML inj IV (07:09)
[2025-01-03 08:10] VITALS: BP 127/65; PULSE 79; RESP 16; TEMP 36.7; O2SAT 98
== END 2025-01-03 09:14 | disposition home or self-care (01) ==
PROVIDERS: Family Medicine; Emergency Provider Family Medicine
DX: R51.9 Headache, unspecified (principal); B34.9 Viral infection, unspecified; R50.9 Fever, unspecified
CPT/HCPCS: 36415; 80048; 84145; 85025; 86140; 87631; 87651; 96365; 96375; 99284; A9270; J1100; J1200; J1790; J1885; J2765; J3360; J7030